=== PATIENT | male | born 1980 | race Caucasian/White ===

== ENCOUNTER 2023-01-19 13:27 | Outpatient (CLI) | payer SELFPAY | END 2023-01-19 13:28 | disposition home or self-care (01) | LOC: NFLDREF 13:29 | PROVIDERS: PCP Internal Medicine; Visit Provider Internal Medicine | DX: R39.9 Unspecified symptoms and signs involving the genitourinary system (principal) | CPT/HCPCS: 87086 ==

== ENCOUNTER 2023-01-26 16:09 | Outpatient (CLI) | payer SELFPAY | END 2023-01-26 16:10 | disposition home or self-care (01) | LOC: NFLDREF 01-29 13:39 | PROVIDERS: PCP Internal Medicine; Referring Provider Internal Medicine; Visit Provider Internal Medicine | DX: R30.9 Painful micturition, unspecified (principal) | CPT/HCPCS: 87086 ==

== ENCOUNTER 2023-01-28 15:36 | Outpatient (CLI) | payer SELFPAY ==
--- NOTE | 2023-01-28 16:00 | CRLHL7_ITS ---
For Patients: As a result of the Century Cures Act, medical imaging exams and procedure reports are released immediately into your electronic medical record. You may view this report before your referring provider. If you have questions, please contact your health care provider. INDICATION: Bilateral testicular pain TECHNIQUE: Ultrasound of the scrotum and contents. Sonographic centeno scale images were obtained with spectral and color Doppler waveform and spectral waveform analysis of the testicles. COMPARISON: None FINDINGS: Right testicle: 5.0 centimeter x 2.6 centimeter x 3.0 centimeter. Normal echotexture. No masses. No suspicious calcifications. Normal arterial and venous and blood flow using Doppler and spectral waveform analysis. Left testicle: 4.8 centimeter x 2.6 centimeter x 3.2 centimeter. Normal echotexture. No masses. No suspicious calcifications. Normal arterial and venous and blood flow using Doppler and spectral waveform analysis. Epididymis: Unremarkable bilaterally. Normal blood flow. Other: No sign of hydrocele. No sign of varicocele. Scrotal wall is normal. IMPRESSION: Unremarkable ultrasound of the scrotum and contents. Dictated by Teo Jaimes MD @ 01/28/2023 6:25:06 PM (Electronically Signed)
== END 2023-01-28 15:37 | disposition home or self-care (01) ==
LOC: US 15:40
PROVIDERS: PCP Internal Medicine; Visit Provider Internal Medicine
DX: N50.819 Testicular pain, unspecified (principal)
CPT/HCPCS: 76870; 93976

== ENCOUNTER 2023-06-07 10:55 | Outpatient (CLI) | payer SELFPAY | END 2023-06-07 10:56 | disposition home or self-care (01) | PROVIDERS: PCP Internal Medicine; Visit Provider Internal Medicine | DX: I10 Essential (primary) hypertension (principal); E11.9 Type 2 diabetes mellitus without complications; N52.9 Male erectile dysfunction, unspecified; Z12.5 Encounter for screening for malignant neoplasm of prostate | CPT/HCPCS: 80053; 80061; 82043; 82570; 84153 ==

== ENCOUNTER 2023-11-29 08:00 | Outpatient (CLI) | payer OTHER, SELFPAY ==
--- OUTSIDE RECORDS SUMMARY | 2023-12-02 10:05 | XMS_ITS | Encounter Summary ---
Author Name Unknown Organization [facility] Address [address] [place] [address] Care Team Providers Care Radiological Defense Officer Name Role Phone Unavailable Primary Care Provider Unavailabl e Encounter Details Date Type Department Care Team (Late st Contact Info) Description 09/13/2023 Orders Only Department of Urology in [place], [place] [address] [place] [address] Francoise Gloria APRN, C.N.P. [address] [place] [address] Social History Tobacco Use Types Packs/Day Years Used Date Smoking Tobacco: Never Assessed Humiliation, Afraid, Rape, and Kick questionnair e Answer Date Recorded Within the last year, have y ou been afraid of your partner or ex-partner? No 07/08/2023 Within the last year, have y ou been humiliated or emotionally abused in other ways by your partner or ex-partner? No Within the last year, have y ou been kicked, hit, slapped, or otherwise physically hurt by your partner or ex-partner? No 07/08/2023 Within the last year, have y ou been raped or forced to have any kind of sexual activity by your partner or ex-partner? No 07/08/2023 Overall Financial Resource Strain (CARDIA) Answe r Date Recorded How hard is it for you to pa y for the very basics like food, housing, medical care, and heating? Not hard at all 07/08/2023 Exercise Vital Sign Answer Date Recorde d On average, how many days pe r week do you engage in moderate to strenuous exercise (like a brisk walk)? 0 days Minutes of Exercise per Session Not on file 07/08/2023 Hunger Vital Sign Answer Date Recorded Within the past 12 months, y ou worried that your food would run out before you got the money to buy more. Never true 07/08/20 Within the past 12 months, t he food you bought just didn't last and you didn't have money to get more. Never true 07/08/2023 PRAPARE - Transportation Answer Date Re corded In the past 12 months, has l ack of transportation kept you from medical appointments or from getting medications? No 06/22 In the past 12 months, has l ack of transportation kept you from meetings, work, or from getting things needed for daily living? No 07/08/2023 Nutrition Answer Date Recorded Nutrition: EVOO Fat Source Unknown 07/08 On average, how many serving s of fruits and vegetables do you eat per day (serving size is equal to 1 cup or approximately the size of a tennis ball)? 5 or more 07/08/2023 Dental Answer Date Recorded Dental: Regular Dentist Yes 07/08/20 Employment Answer Date Recorded Employment status Employed and actively working without restrictions 07/08/2023 Housing Stability Answer Date Recorded What is your living situation today? I have a [facility] place to live 07/08/2023 Sex and Gender Information Value Date Recorded Sex Assigned at Male 07/08/2023 1:48 PM CDT Gender Identity Male 07/08/2023 1:48 PM CDT Sexual Orientation Straight 07/08/2023 1: 48 PM CDT documented as of this encounter Plan of Treatment Not on file documented as of this encounter Visit Diagnoses Not on filedocumented in this encounter
--- OUTSIDE RECORDS SUMMARY | 2023-12-02 10:05 | XMS_ITS | Referral Summary ---
Author Name Unknown Organization [facility] Address [address] [place] [address] Care Team Providers Care Boilermaker Mechanic Name Role Phone Unavailable Primary Care Provider Unavailabl e Source Comments Patient records contain information from all sites at [facility]. For routine questions regarding patient records, call [phone] during business hours, M-F 8:00 AM - 5:00 PM Central Time. Record requests for emergency care only can be directed to [phone] at any time.[facility] Encounters Date Type Department Care Team Description 11/23/2023 11:00 AM YIELD ANALYST Office Visit Department of Urology in [address] [address] Francoise Gloria APRN, C.N.P. Prostatitis (Primary Dx); Dysfunction Erectile; Cancer Prostate Family History 11/10/2023 Clinical Communication Department of Urology in [address] [address] Mary Velasquez, R.N. 09/13/2023 Orders Only Department of Urology in [address] [address] Francoise Gloria APRN, C.N.P. 09/09/2023 Clinical Communication Department of Urology in [address] [address] Francoise Gloria APRN, C.N.P. from Last 3 Months Allergies No known active allergies Medications Medication Sig Dispensed Refills Start Date End Date Status aspirin 81 mg chewable tablet Chew 81 mg daily. 0 9 Active atorvastatin (LIPITOR) 40 mg tablet Take 40 mg by mouth every evening. 0 Active clobetasoL (CLOBEX) 0.05 % lotion Apply 1 Application topically at bedtime as needed. 0 Active amphetamine-dex troamphetamine (ADDERALL XR) 30 mg 24 hr capsule Take 30 mg by mouth daily. 0 Active amphetamine-dex troamphetamine (ADDERALL XR) 10 mg 24 hr capsule Take 10 mg by mouth daily. 0 Active albuterol 90 mcg/actuation inhaler Inhale 2 puffs every 6 (six) hours as needed for wheezing or shortness of breath. 0 7 Active EPINEPHrine 0.3 mg/0.3 mL injection syringe Inject 0.3 mg intramuscularly as needed for anaphylaxis. 0 7 Active glyBURIDE (DIABETA) 5 mg tablet Take 5 mg by mouth 2 (two) times a day with meals. 0 Active losartan (COZAAR) 100 mg tablet Take 100 mg by mouth daily. 0 Active metFORMIN (GLUCOPHAGE) 1,000 mg tablet Take 1,000 mg by mouth 2 (two) times a day with meals. 0 Active nitroglycerin (NITROSTAT) 0.[address] 0.4 mg under the tongue every 2 (two) hours as needed for chest pain. 0 9 Active sodium bicarb-sodium chloride 2.7 % aerosol,spray Administer 1 spray into nostril(s) 5 (five) times a day. 0 Active triamcinolone (NASACORT) 55 mcg/actuation nasal spray Administer 1 spray into each nostril daily. 0 Active sotaloL (BETAPACE) 120 mg tablet Take 120 mg by mouth every 12 (twelve) hours. 0 3 Active zolpidem (AMBIEN) 10 mg tablet Take 10 mg by mouth at bedtime. 0 Active ticagrelor (BRILINTA) 90 mg tablet Take 90 mg by mouth 2 (two) times a day. 0 3 Active insulin glargine (Lantus Solostar U-100 Insulin) 100 unit/mL (3 mL) injection Inject 15 Units under the skin at bedtime. 0 3 Active metoprolol tartrate (LOPRESSOR) 25 mg tablet Take 25 mg by mouth 2 (two) times a day. 0 3 Active isosorbide mononitrate (IMDUR) 60 mg 24 hr tablet Take 60 mg by mouth daily. 0 3 Active amlodipine besylate (AMLODIPINE ORAL) Take by mouth. 0 Active tamsulosin (FLOMAX) 0.4 mg 24 hr capsule Take 1 capsule (0.4 mg total) by mouth daily. 30 capsule 1 3 11/23/19 24 Discontinued doxycycline hyclate (VIBRAMYCIN) 100 mg capsule Take 1 capsule (100 mg total) by mouth 2 (two) times a day before breakfast and dinner. 60 capsule 1 3 11/23/19 24 Discontinued Active Problems Problem Noted Date Diagnosed Date Sleep Apnea 07/08/2023 Obesity Unspecified 07/08/2023 Myocarditis 07/08/2023 Dyslipidemia 07/08/2023 Overview: -Low HDL, high TG Atherosclerotic Heart Diseas e Of [place] Coronary Artery Without Angina Pectoris 07/08/2023 Overview: -Mild per angiogram 05/13/10. EF 65%. 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 I have a [facility] place to live 07/08/2023 Sex and Gender Information Value Date Recorded Sex Assigned at Male 07/08/2023 1:48 PM CDT Gender Identity Male 07/08/2023 1:48 PM CDT Sexual Orientation Straight 07/08/2023 1: 48 PM CDT Plan of Treatment Not on file [address] [facility] [place] [id number]
--- OUTSIDE RECORDS SUMMARY | 2023-12-02 10:05 | XMS_ITS ---
Author Name Unknown Organization [facility] Address [address] [place] [address] Care Team Providers Care Hadoop Analyst Name Role Phone Unavailable Unavailable Unavailable Surgery Details Not on file Complications Check Surgery Details section. Procedure Estimated Blood Loss Check Surgery Details section. Procedure Findings Check Surgery Details section. Procedure Specimens Taken Check Surgery Details section.
--- OUTSIDE RECORDS SUMMARY | 2023-12-02 10:05 | XMS_ITS | Encounter Summary ---
Author Name Unknown Organization [facility] Address [address] [place] [address] Care Team Providers Care Producer Arborist Manager Name Role Phone Unavailable Primary Care Provider Unavailabl e Encounter Details Date Type Department Care Team (Late st Contact Info) Description 11/10/2023 Clinical Communication Department of Urology in [place], [place] [address] [address] Mary Velasquez R.N. [address], [place] [address] Social History Tobacco Use Types [...] your living situation today? I have a [facility] place to live 07/08/2023 Sex and Gender Information Value Date Recorded Sex Assigned at Male 07/08/2023 1:48 PM CDT Gender Identity Male 07/08/2023 1:48 PM CDT Sexual Orientation Straight 07/08/2023 1: 48 PM CDT documented as of this encounter Miscellaneous Notes * Telephone Encounter - Mary Velasquez, R.N. - 11/10/2023 2:05 PM CST OW Uro contacted patient to inquire further information for uro visit 11/23/23. Patient states same exact thing as when he was seen in June. Denies any change of symptoms or new symptoms, I do think the medication she put me on may have made it worse, pt did complete as instructed. Patient doesmention swelling suzy testicles, but states no change since last uro appointment as well. TH AND WELLNESS ADVISOR documented in this encounter Plan of Treatment Not on file documented as of this encounter Visit Diagnoses Not on filedocumented in this encounter
--- OUTSIDE RECORDS SUMMARY | 2023-12-02 10:05 | XMS_ITS | Encounter Summary ---
Author Name Unknown Organization [facility] Address [address] [place] [address] Care Team Providers Care Bean Sprout Grower Name Role Phone Unavailable Primary Care Provider Unavailabl e Encounter Details Date Type Department Care Team (Late st Contact Info) Description 09/09/2023 Clinical Communication Department of Urology in [place], [place] [address], [place] [address] Francoise Gloria APRN, C.N.P. [address] [place] [address] Social History Tobacco Use Types [...] your living situation today? I have a [facility] place to live 07/08/2023 Sex and Gender Information Value Date Recorded Sex Assigned at Male 07/08/2023 1:48 PM CDT Gender Identity Male 07/08/2023 1:48 PM CDT Sexual Orientation Straight 07/08/2023 1: 48 PM CDT documented as of this encounter Miscellaneous Notes * Telephone Encounter - Mary Gael, RMonalisaN. - 09/13/2023 2:51 PM CDT OW Uro Rn called patient. Patient is vague, dull pain hard to describe; it got better with antibiotics and now working it's way back does have occasional pain with urination but more so like prostatitis. Symptoms are daily. * Telephone Encounter - Mary Gale RBinta. - 09/09/2023 4:07 PM CDT OW Uro RN called patient. Patient states, almost as bad as before antibiotics for prostatitis. Slow stream, pain in groin, pain during urination. ED, has not yet discussed with cardiology, I should mention I ended up at [facility] for two stents and an ablation. But thinks his concerns are linked together and wondering what he can do. documented in this encounter Plan of Treatment Not on file documented as of this encounter Visit Diagnoses Not on filedocumented in this encounter
--- OUTSIDE RECORDS SUMMARY | 2023-12-02 10:05 | XMS_ITS | Clinical Summary ---
Author Name Unknown Organization [facility] Address [address] [place] [address] Care Team Providers Care Nut Grinder Name Role Phone Unavailable Primary Care Provider Unavailabl e Source Comments Patient records contain information from all sites at [facility]. For routine questions regarding patient records, call [phone] during business hours, M-F 8:00 AM - 5:00 PM Central Time. Record requests for emergency care only can be directed to [phone] at any time.[facility] Allergies No known active allergies Medications Medication [...] high TG Atherosclerotic Heart Diseas e Of [place] Coronary Artery Without Angina Pectoris 07/08/2023 Overview: -Mild per angiogram 05/13/10. EF 65%. 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 Prostatitis (Primary Dx); Dysfunction Erectile; Cancer Prostate Family History 11/10/2023 Clinical Communication Department of Urology in [place], [place] [address] [address] Mary Velasquez, R.N. 09/13/2023 Orders Only Department of Urology in [place], [place] [address] [address] Francoise Gloria APRN, C.N.P. 09/09/2023 Clinical Communication Department of Urology in [place], [place] [address] [place] [phone] Francoise Gloria APRN, C.N.P. from Last 3 Months Immunizations Name Administration Dates Next Due DTP 03/23/1985, 1,1980,1980,04/11/19 80 MMR 04/04/1992,07/15/1981 OPV 03/23/1982, 1,1980,1980,04/11/19 80 Td (Adult), adsorbed 07/18/1997 Td, (Adult) Unspecified 11/22/1992 Tdap 04/10/2020 Family History Medical History Relation Name Comments Heart attack Father EF 20% Prostate cancer Father Heart attack Paternal Grandmother Relation Name Status Comments Father Paternal Grandmother Social History Tobacco Use Types Packs/Day Years [...] money to buy more. Never true 07/08/20 23 Within the past 12 months, t he [...] your living situation today? I have a [facility] place to live 07/08/2023 Sex and Gender Information Value Date Recorded Sex Assigned at Male 07/08/2023 1:48 PM CDT Gender Identity Male 07/08/2023 1:48 PM CDT Sexual Orientation Straight 07/08/2023 1: 48 PM CDT Plan of Treatment Health Maintenance Due Date Last Done Comments Diabetic Office Visit with Foot Exam 1980 Dilated Eye Exam 1980 HIV Screening 1980 Hemoglobin A1C 1980 Hepatitis B Vaccines (1 of 3 - 3-dose series) 1980 Hepatitis C Screening 1980 Office Visit for Blood Pressure Check / Re-check 1980 Urine Albumin 1980 Pneumococcal vaccine (0-64 years) (1 of 2 - PCV) 01/25/1986 COVID-19 Vaccine (3 - season) 2023 03/12/2021, 02/12/2021 Influenza Vaccine (#1) 2023 Depression Screening (Annual PHQ-2) 11/22/2023 Creatinine Level (Kidney Function Test) 07/27/2024 07/27/2023, 07/25/2023, 07/24/2023, Additional history exists Sodium Level 07/27/2024 07/27/2023, 09/0 01/2023, 07/24/2023, Additional history exists Potassium Level 07/28/2024 07/28/2023, 09/0 03/2023, 07/26/2023, Additional history exists Lipid (Cholesterol) Screening 07/26/2028 07/26/2023, 08/08/2021, 10/25/2019 DTaP,Tdap,and Td Vaccines (7 - Td or Tdap) 04/10/2030 04/10/2020, 07/18/1997, 11/22/1992, Additional history exists HPV Vaccines Aged Out No longer eligi ble based on patient's age to complete this topic [address] [facility] [place] [phone]
--- OUTSIDE RECORDS SUMMARY | 2023-12-02 10:05 | XMS_ITS | Encounter Summary ---
Author Name Unknown Organization [facility] Address [address] [place] [address] Care Team Providers Care Homeowner Association Manager Name Role Phone Unavailable Primary Care Provider Unavailabl e Reason for Visit * Appointment Request (Routine) - Closed Specialty Diagnoses / Procedures Referred By Contac t Referred To Contact Urology Referral ID Status Reason Start Date Expiration Date Visits Re quested Visits Authorized [id number] Closed 11/01/2023 10/31/2024 1 1 Encounter Details Date Type Department Care Team (Late st Contact Info) Description 11/23/2023 11:00 AM MILITARY ADMINISTRATIVE TECHNICIAN Office Visit Department of Urology in [place], [place] [address] [address] Francoise Gloria, SUSI, C.N.P. [address] [address] Prostatitis (Primary Dx); Dysfunction Erectile; Cancer Prostate Family History Social History Tobacco Use Types Packs/Day Years [...] your living situation today? I have a [facility] place to live 07/08/2023 Sex and Gender Information Value Date Recorded Sex Assigned at Male 07/08/2023 1:48 PM CDT Gender Identity Male 07/08/2023 1:48 PM CDT Sexual Orientation Straight 07/08/2023 1: 48 PM CDT documented as of this encounter Progress Notes * Francoise Gloria, SUSI, C.N.P. - 11/23/2023 11:00 AM CST SUBJECTIVE CHIEF COMPLAINT/REASON FOR VISIT Prostatitis HISTORY OF PRESENT ILLNESS Francisco is a pleasant 43 year old male here today for follow-up for prostatitis. He completed 2 courses of antibiotics. He states on the last week or 2 of antibiotics he had worsening testicular pain and swelling. His symptoms are now completely resolved, he denies any testicular pain, scrotal pain, symptoms of prostatitis. He was hospitalized from July 22 through July 28 for cardiac issues. He underwent angiogramand had stents placed to the LAD and PTCA, lithotripsy and overlapping KYRA to distal to proximal RCA. He continues to have frequent PVCs and will have an ablation on December 03. He sees his primaryprovider, Dr. Salvador Gamino at [facility] for his diabetes management and primary care. The following portions of the patient's history were reviewed and updated as appropriate: allergies, current medications, family history, medical history, social history, surgical history, and problem list. REVIEW OF SYSTEMS Gastrointestinal: - Negative for constipation and diarrhea. Genitourinary: - Negative for incontinence, difficulty urinating, pain with urination, blood in urine, urgency andfrequent urination. Psychiatric/Behavioral: Positive for erectile dysfunction. OBJECTIVE There were no vitals filed for this visit. PHYSICAL EXAM Vitals and nursing note reviewed. General: Well developed, well nourished, well groomed 0 in no acute distress. Neurological: Alert, cooperative, oriented x3. Appropriate mood and affect. Abdomen: Soft, non-tender, non-distended Extremities: Warm, without edema or ulcerations. ASSESSMENT / PLAN 1. Prostatitis He has not had any symptoms of prostatitis for almost 3 weeks, this is excellent news. At this time, we will continue to monitor. If he has change in urinary symptoms or pain with urination or ejaculation he will contact us. 2. Dysfunction Erectile He is taking Imdur which makes him a poor candidate for oral PDE5. We discussed possibility of vacuum erection device with penile ring as well as implantable device in the future. He will consider this and let us know if he would like to discuss implantable device in the future. 3. Cancer Prostate Family History We discussed that with family history of prostate cancer, we will start checking PSA levels at age 45, we will be careful to check only if he is not having any symptoms of infection. He is given literature about prostate health. Signed by: Francoise Gloria APRN, C.N.P. 11/23/2023 12:04 PM MILITARY ADMINISTRATIVE TECHNICIAN TARY ADMINISTRATIVE TECHNICIAN documented in this encounter Plan of Treatment Not on file documented as of this encounter Visit Diagnoses Diagnosis Prostatitis- Primary Dysfunction Erectile Cancer Prostate Family History documented in this encounter
--- OUTSIDE RECORDS SUMMARY | 2023-12-02 10:06 | XMS_ITS | Encounter Summary ---
Author Name Unknown Organization [facility] Address [address] [place] [address] Care Team Providers Care Career Representative Name Role Phone Unavailable Primary Care Provider Unavailabl e Reason for Visit * Reason Comments Consult Erectile Dysfunction * Outpatient (Routine) - Closed Specialty Diagnoses / Procedures Referred By Tor t Referred To Contact Urology Diagnoses Dysfunction Erectile Nathaniel Gamino M.D. [address] [place] [address] [facility] Region Referral ID Status Reason Start Date Expiration Date Visits Re quested Visits Authorized [id number] Closed 06/07/2023 06/06/2024 1 1 Encounter Details Date Type Department Care Team (Latest Contact Info) Description 07/08/2023 1:30 PM CDT Comprehensive Visit Department of Urology in [place], [place] [address] [address] Francoise Gloria, SUIS, C.N.P. [address] [address] Dysfunction Erectile (Primary Dx); Prostatitis Social History Tobacco Use Types Packs/Day Years [...] living situation today? I have a [facility] place to live 07/08/2023 Sex and Gender Information Value Date Recorded Sex Assigned at Male 07/08/2023 1:48 PM CDT Gender Identity Male 07/08/2023 1:48 PM CDT Sexual Orientation Straight 07/08/2023 1: 48 PM CDT documented as of this encounter Consult Notes * Francoise Gloria, SUSI, C.N.P. - 07/08/2023 1:30 PM CDT SUBJECTIVE REQUESTING PROVIDER Nathaniel Gamino M.D. REASON FOR CONSULT Erectile Dysfunction HISTORY OF PRESENT ILLNESS Francisco is a pleasant 43 year old male here today for consultation for erectile dysfunction. He has history of SVT, type 2 diabetes that is not well controlled, and hypertension. He reports that he has been having slowing urinary stream. His scrotum swells by nighttime. He drinks 1-2 gal of water during the day. His pain at the end of the penis and york to urinate. Blood glucose is have been up to 300, he is taking 15 units of Lantus. His blood pressure has been elevated, 140 over 70s to 80s. He reports that occasionally his diastolic gets up 2 100. He has not needed any nitroglycerin lately but reports he still is having episodesof SVT, last episode was last month. The following portions of the patient's history were reviewed and updated as appropriate: allergies, current medications, family history, medical history, social history, surgical history, and problem list. REVIEW OF SYSTEMS Gastrointestinal: - Negative for constipation and diarrhea. Genitourinary: Positive for difficulty urinating. - Negative for incontinence, pain with urination, blood in urine, urgency and frequent urination. Psychiatric/Behavioral: Positive for erectile dysfunction. Patient Active Problem List Diagnosis Tachycardia Supraventricular (HCC) Sleep Apnea Obesity Unspecified Myocarditis (HCC) Dyslipidemia Diabetes Mellitus Type 2 (HCC) Attention Deficit Hyperactive Disorder Atherosclerotic Heart Disease Of [place] Coronary Artery Without Angina Pectoris Angina Unstable (HCC) Myocardial Infarction Acute (HCC) Hypertension Essential Primary No past medical history on file. No past surgical history on file. No family history on file. No Known Allergies Current Outpatient Medications on File Prior to Visit Medication Sig Dispense Refill albuterol 90 mcg/actuation inhaler Inhale 2 puffs every 6 (six) hours as needed for wheezing or shortness of breath. amphetamine-dextroamphetamine (ADDERALL XR) 10 mg 24 hr capsule Take 10 mg by mouth daily. amphetamine-dextroamphetamine (ADDERALL XR) 30 mg 24 hr capsule Take 30 mg by mouth daily. aspirin 81 mg chewable tablet Chew 81 mg daily. atorvastatin (LIPITOR) 40 mg tablet Take 40 mg by mouth every evening. clobetasoL (CLOBEX) 0.05 % lotion Apply 1 Application topically at bedtime as needed. EPINEPHrine 0.3 mg/0.3 mL injection syringe Inject 0.3 mg intramuscularly as needed for anaphylaxis. glyBURIDE (DIABETA) 5 mg tablet Take 5 mg by mouth 2 (two) times a day with meals. losartan (COZAAR) 100 mg tablet Take 100 mg by mouth daily. metFORMIN (GLUCOPHAGE) 1,000 mg tablet Take 1,000 mg by mouth 2 (two) times a day with meals. nitroglycerin (NITROSTAT) 0.[address] 0.4 mg under the tongue every 2 (two) hours as needed for chest pain. sodium bicarb-sodium chloride 2.7 % aerosol,spray Administer 1 spray into nostril(s) 5 (five) timesa day. sotaloL (BETAPACE) 120 mg tablet Take 120 mg by mouth every 12 (twelve) hours. triamcinolone (NASACORT) 55 mcg/actuation nasal spray Administer 1 spray into each nostril daily. zolpidem (AMBIEN) 10 mg tablet Take 10 mg by mouth at bedtime. No current facility-administered medications on file prior to visit. Social History Socioeconomic History Marital status: Single Social Determinants of Health Financial Resource Strain: Low Risk (07/08/2023) Overall Financial Resource Strain (CARDIA) Difficulty of Paying Living Expenses: Not hard at all Food Insecurity: No Food Insecurity (07/08/2023) Hunger Vital Sign Worried About Running Out of Food in the Last Year: Never true Ran Out of Food in the Last Year: Never true Transportation Needs: No Transportation Needs (07/08/2023) PRAPARE - Transportation Lack of Transportation (Medical): No Lack of Transportation (Non-Medical): No Physical Activity: Unknown (07/08/2023) Exercise Vital Sign Days of Exercise per Week: 0 days Intimate Partner Violence: Not At Risk (07/08/2023) Humiliation, Afraid, Rape, and Kick questionnaire Fear of Current or Ex-Partner: No Emotionally Abused: No Physically Abused: No Sexually Abused: No Housing Stability: Low Risk (07/08/2023) Housing Stability Housing: Living Situation: I have a steady place to live OBJECTIVE There were no vitals filed for this visit. PHYSICAL EXAM Vitals and nursing note reviewed. General: Well developed, well nourished, well groomed male in no acute distress. Neurological: Alert, cooperative, oriented x3. Appropriate mood and affect. Abdomen: Soft, non-tender, non-distended : Skin color and turgor appropriate for region. No ulcers, erythema, rashes, or pigmented lesionsnoted. MALE: Penis is without abnormal skin, contour changes or plaques. Testicles of normal size, descended bilaterally with no masses or tenderness. PROSTATE: Perianal area intact without lesions or visible hemorrhoids. No fissures or fistulas. Good sphincter tone, no masses. Prostate is symmetrical, smooth, boggy, slightly enlarged, non-tender and without nodules. Seminal vesicles are non-palpable. Approximate size is 30 grams. ASSESSMENT / PLAN 1. Dysfunction Erectile We discussed causes of erectile dysfunction including his cardiac history and uncontrolled diabetes. We discussed that with his continued bouts of SVT, it can be dangerous to use sildenafil. He has an upcoming appointment with his cardiology team. He would like a prescription for sildenafil, he states that he will not use this until he has clearance from cardiology team. We discussed side effectsof sildenafil including chest pain, shortness of breath, extremely low blood pressure, vision changes, headache. We also briefly discussed options including surgical options, vacuum erection device, and injectable options. - Urology Referral 2. Prostatitis We discussed that his slowing stream and pain with urination are likely from prostatitis. Prescription for doxycycline is provided, he is also given prescription for Flomax. He should take this for 1-2 weeks until he has improvement of urinary stream. Follow-up in the Urology Department as needed. A ll questions answered today. Signed by: Francoise Gloria APRN, C.N.P. 07/26/2023 5:34 PM CDT Answers submitted by the patient for this visit: Men's Health - Erectile Function (Submitted on 07/08/2023) Do you have any difficulty obtaining or maintaining an erection satisfactory for sexual intercourse?: Yes Men's Health- Peyronie's Disease (Submitted on 07/08/2023) Do you have any penile curvature?: No Men's Health - Other Sexual Function (Submitted on 07/08/2023) Do you have any complaints about orgasm or ejaculation?: Yes Are you able to achieve an orgasm (reach climax)?: Yes Do you have fluid which leaves the penis with orgasm / climax?: Yes Do you ever accidentally urinate when aroused or during orgasm / climax?: Yes Do you feel that you ejaculate (reach climax) too slowly or too quickly?: yes Men's Health - Testosterone Intake (Submitted on 07/08/2023) On a scale of 1-10, how strong is your sexual desire (libido)?: 8 Difficulty Concentrating: Yes Decreased Energy: Yes Decreased erectile function: Yes Decreased Motivation: Yes Do you have diabetes?: yes Have you ever had your testosterone checked?: No Have you previously used any of the following testosterone therapies?: none Are you currently receiving testosterone therapy?: No How long have you taken the testosterone medicine (if taking intermittently, for how many years have you been taking intermittently)?: 0 Months Which symptoms are improved with the testosterone medication?: other Do you wish to maintain your fertility?: Yes Men's Health - Erectile Function (Submitted on 07/08/2023) How many months or years have you noticed difficulties with erections?: 10 Months How many times per month do you engage in sexual intercourse with a partner?: 0 How would you rate the hardness of your erection without any medications or supplements?: 0 = Penisdoes not enlarge How many minutes can you maintain an erection that is strong enough to penetrate?: 0 Can maintain erection long enough for successful intercourse?: No How strong are your night-time or travel clerk erections?: 0 = Penis does not enlarge Have you ever tried medications like Viagra, Levitra, Cialis, or Stendra?: No Have you ever, or do you currently use penile injection therapies?: No Have you ever or do you currently use a vacuum device or erection constriction ring to help with erections?: No None: Yes Have you had your prostate removed (prostatectomy)?: No Have you ever received any form of hormone therapy (shots or pills to reduce your testosterone)?: No (Submitted on 07/08/2023) From the time that you penetrate, how long does it take until you ejaculate?: 0 Minutes Have you tried any therapies for rapid ejaculation?: No How long have you experienced problems with rapid ejaculation?: varies documented in this encounter Plan of Treatment Not on file documented as of this encounter Visit Diagnoses Diagnosis Dysfunction Erectile- Primary Prostatitis documented in this encounter
--- OUTSIDE RECORDS SUMMARY | 2023-12-02 10:06 | XMS_ITS | Encounter Summary ---
Author Name Unknown Organization [facility] Address [address] [place] [address] Care Team Providers Care Hat Model Name Role Phone Unavailable Primary Care Provider Unavailabl e Reason for Referral * Outpatient (Routine) - Closed Specialty Diagnoses / Procedures Referred By Contac t Referred To Contact Urology Diagnoses Dysfunction Erectile Nathaniel Gamino M.D. [address] [place] [address] [facility] Referral ID Status Reason Start Date Expiration Date Visits Re quested Visits Authorized [id number] Closed 06/07/2023 06/06/2024 1 1 Encounter Details Date Type Department Care Team (Late st Contact Info) Description 06/07/2023 [place] [address] [address] Nathaniel Gamino M.D. [address] [place] [address] Dysfunction Erectile (Primary Dx) Social History Tobacco Use Types Packs/Day Years Used Date Smoking Tobacco: Never Assessed Nutrition Answer Date Recorded Nutrition: EVOO Fat Source Unknown 06/07 Nutrition: Servings of Fruits/Vegetables per Day Not on file 06/07/2023 Dental Answer Date Recorded Dental: Regular Dentist Unknown 06/07/20 Sex and Gender Information Value Date Recorded Sex Assigned at Male 07/08/2023 1:48 PM CDT Gender Identity Male 07/08/2023 1:48 PM CDT Sexual Orientation Straight 07/08/2023 1: 48 PM CDT documented as of this encounter Plan of Treatment Scheduled Referrals Name Type Priority Associated Diagnoses Orde r Schedule Urology Referral Outpatient Referral Routine Dysfunction Erectile Expected: 06/07/2023 (Approximate), Expires: 09/07/2024 documented as of this encounter Visit Diagnoses Diagnosis Dysfunction Erectile- Primary documented in this encounter
--- OUTSIDE RECORDS SUMMARY | 2023-12-02 10:06 | XMS_ITS | Clinical Summary ---
Author Name Unknown Organization [facility] Address [place], [place] [address] Care Team Providers Care Internal Medicine Specialist Name Role Phone Nathaniel Gamino MD Primary Care Provider [phone] Allergies No known active allergies Medications Medication Sig Dispensed Refills Start Date End Date Status ALBUTEROL 90 MCG/ACTUATION AEROSOL INHALER TAKE 2 PUFFS FOUR TIMES DAILY AND NEEDED 17 3 03/15/2007 Active EPINEPHrine (EPIPEN) 0.3 mg/0.3 mL injectionIndicatio ns:Anaphylactic reaction, initial encounter Inject 0.3 mg intramuscular one time if needed for Allergic Reaction for up to 1 dose. 2 Each 0 12/10/2016 Active aspirin chewable 81 mg chewable tabletIndications: Chest pain, unspecified type,NSTEMI (non-ST elevated myocardial infarction) (HC) Take 1 tablet by mouth once daily with a meal. 0 10/25/2019 Active dextroamphetamine- amphetamine (ADDERALL XR) 30 mg Extended-Release capsule Take 30 mg by mouth every morning 0 Active dextroamphetamine- amphetamine (ADDERALL XR) 10 mg Extended-Release capsule Take 10 mg by mouth once daily in the afternoon Take at 1 pm 0 Active sodium bicarb-sodium chloride 2.7 % nasal spray Inhale 1 [place] to both nostrils 5 times daily. as needed for outdoor allergy exposure. 0 Active triamcinolone, 55 mcg each actuation, nasal (NASACORT) 55 mcg nasal spray Inhale 1 [place] into both nostrils at bedtime. 0 Active Clobetasol Propionate 0.05 % lotion Apply topically to affected area(s) once daily if needed for Other (Specify) (eczema). 0 Active metFORMIN (GLUCOPHAGE) 1,000 mg tablet Take 1,000 mg by mouth two times daily. 0 Active Lantus Solostar U-100 Insulin 100 unit/mL (3 mL) pen Inject 15 units subcutaneous before bedtime. 0 12/16/2022 Active tamsulosin (FLOMAX) 0.4 mg capsule Take 0.4 mg by mouth once daily. 0 Active amLODIPine (NORVASC) 5 mg tabletIndications: Essential hypertension Take 2 Tablets (10 mg) by mouth once daily. 90 Tablet 3 07/28/2023 Active ticagrelor (BRILINTA) 90 mg tabletIndications: Unstable angina (HC) Take 1 Tablet (90 mg) by mouth two times daily. 60 Tablet 12 07/28/2023 Active zolpidem (AMBIEN) 10 mg tabletIndications: Essential hypertension Take 1 Tablet (10 mg) by mouth at bedtime. 0 07/28/2023 Active atorvastatin (LIPITOR) 40 mg tabletIndications: NSTEMI (non-ST elevated myocardial infarction) (HC) Take 1 Tablet (40 mg) by mouth at bedtime. 90 Tablet 3 08/06/2023 Active isosorbide mononitrate (IMDUR) 60 mg extended release tablet 24 hourIndications:Un stable angina (HC) Take 1 Tablet (60 mg) by mouth once daily. 90 Tablet 3 08/06/2023 Active nitroglycerin (NITROSTAT) 0.4 mg sublingual tabletIndications: NSTEMI (non-ST elevated myocardial infarction) (HC) Place 1 Tablet (0.4 mg) under the tongue every 5 minutes if needed for Chest Pain. 25 Tablet 3 08/06/2023 Active glyBURIDE (MICRONASE; DIABETA) 5 mg tabletIndications: Diabetes 1.5, managed as type 1 (HC) Take 1 Tablet (5 mg) by mouth once daily. 0 08/06/2023 Active losartan (COZAAR) 100 mg tabletIndications: Hypertension Take 1 Tablet (100 mg) by mouth once daily. 90 Tablet 3 08/06/2023 Active metoprolol tartrate (LOPRESSOR) 25 mg tabletIndications: PVC's (premature ventricular contractions) Take 1 Tablet (25 mg) by mouth two times daily. 180 Tablet 3 08/23/2023 Active sotaloL (BETAPACE) 120 mg tabletIndications: PVC's (premature ventricular contractions) Take 1 Tablet (120 mg) by mouth every 12 hours. 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 Residual 50% ostial diagonal stenosis - NSTEMI s/p KYRA to distal RCA (10/2019) Dyslipidemia Overview: -Low HDL, high TG NSTEMI (non-ST elevated myocardial infarction) Myocarditis Resolved Problems Problem Noted Date Diagnosed Date Resolved Date Insulin dependent type 2 diabetes mellitus 11/12/2019 11/12/2019 Uncontrolled type 2 diabetes mellitus without complication, without long-term current use of insulin 10/24/2019 11/12/2019 Elevated troponin 11/12/2019 Family history of premature CAD 11/12/2019 Encounters Date Type Department Care Team Description 11/30/2023 Telephone [facility] [address] [place] [address] Elias Arita MD Procedure 10/28/2023 Telephone [facility] [address] [facility] [address] [place] [address] Elias Arita MD Procedure 10/27/2023 Telephone [facility] [address] [place] [address] Elias Arita MD Medication Management from Last 3 Months Immunizations Name Administration Dates Next Due DTP 03/23/1985,09/06/1981,1980 ,1980,1980 MMR 04/04/1992,07/15/1981 Oral Polio Vaccine 03/23/1982,09/06/1981, 980,1980,1980 Td (Age >=7 Years) 11/22/1992 Family History Medical History Relation Name Comments Diabetes type II Father Heart attack Father Hypertension Father Asthma Mother Cancer-breast Mother Relation Name Status Comments Brother Alive Father Alive Maternal Grandfather Maternal Grandmother Mother Alive Paternal Grandfather Paternal Grandmother Sister Alive Social History Tobacco Use Types Packs/Day Years Used Date Smoking Tobacco: Former Cigarettes 1 10 1 12/25/2008 - 10/24/2019 Smokeless Tobacco: Never Tobacco Cessation:Counseling Given: Yes Comments:1 pack a day for 20 years Alcohol Use Standard Drinks/Week Comments Yes 0 (1 standard drink = 0.6 oz pur e alcohol) rare PHQ-2 Answer Date Recorded PHQ-2 Score 0 12/12/2019 Social Connections Answer Date Recorded Frequency of Communication with Friends and Fami ly Not on file 11/18/2021 Financial Resource Strain Answer Date R ecorded Difficulty of Paying Living Expenses Not on file 11/18/2021 Difficulty of Paying Living Expenses Not on file 11/18/2021 Sex and Gender Information Value Date Recorded Sex Assigned at Not on file Gender Identity Not on file Sexual Orientation Not on file Obstetrics History Last Filed Vital Signs Vital Sign Reading Time Taken Comments Blood Pressure 130/82 08/06/2023 4:08 PM CDT Pulse 76 08/06/2023 4:08 PM CDT Temperature 36.6 ??C (97.8 ??F) 07/28/2023 9:22 AM CD T Respiratory Rate 14 08/06/2023 4:08 PM CDT Oxygen Saturation 97% 08/06/2023 4:08 PM CDT Inhaled Oxygen Concentration - - Weight 119 kg (262 lb 6.4 oz) 08/06/2023 4:08 PM CDT Height 180.3 cm (5' 11) 08/06/2023 4:08 PM CDT Body Mass Index 36.6 08/06/2023 4:08 PM CDT Plan of Treatment Upcoming Encounters Date Type Department Care Team (Late st Contact Info) Description 12/03/2023 8:30 AM PLANT TOUR GUIDE Appointment [facility] [address] [place] [address] Elias Arita MD [address] [facility] [address] [place], [place] [id number] 12/24/2023 7:30 AM PLANT TOUR GUIDE Appointment [facility] [address] [place] [address] Health Maintenance Due Date Last Done Comments Hepatitis B series for Diabe murphy (1 of 3 - 3-dose series) 1980 Pneumococcal series for age 6-64 (1 of 2 - PCV) 01/25/1986 Tdap 01/25/1991 Hepatitis C screening for ag e 18-79 01/25/1998 Tetanus booster 11/22/2002 11/22/1992 Depression screening for age 12+ 10/25/2020 10/25/20 19, 10/24/2019 COVID-19 vaccine series (2022- season) 2023 03/12/2021, 02/12/2021 Influenza for age 9-49 07/23/2023 BMI (ht and wt on same day) for age 18+ 08/06/2024 08/06/2023, 07/21/2023, 04/29/2020, Additional history exists Lipids for age 35-44 07/26/2028 07/26/2023, 08/08/2021, 10/25/2019, Additional history exists HIV for age 15-65 Completed 05/14/2010 Advance Directives Latest Code Status on File Code Status Date Activated Date Inactivated Comments Full Code 07/22/2023 1:03 AM 07/28/2023 6:16 PM Question Answer Comments Code Status Discussion: Reviewed Preferences Code Status History Code Status Date Activated Date Inactivated Comments Full Code 11/12/2019 3:08 AM 11/15/2019 12:38 PM Question Answer Comments Code Status Discussion: Discussed Full Code 10/24/2019 12:02 PM 10/25/2019 7:31 PM Full Code 05/13/2010 5:14 PM 05/14/2010 8:19 PM Care Teams Internal Medicine Specialist Relationship Specialty Start Date End Date Nathaniel Gamino MD PCP - General 05/13/10
== END 2023-11-29 08:01 | disposition home or self-care (01) ==
LOC: NFLDREF 12-02 10:00
PROVIDERS: PCP Internal Medicine; Referring Provider Internal Medicine; Visit Provider Internal Medicine
DX: E11.9 Type 2 diabetes mellitus without complications (principal); Z13.220 Encounter for screening for lipoid disorders
CPT/HCPCS: 80053; 80061

== ENCOUNTER 2024-07-04 08:20 | Outpatient (CLI) | payer OTHER, SELFPAY ==
--- OUTSIDE RECORDS SUMMARY | 2024-07-07 08:28 | XMS_ITS | Referral Summary ---
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 For routine questions regarding patient records, call [phone] during business hours, M-F 8:00 AM - 5:00 PM Central Time. Record requests for emergency care only can be directed to [phone] at any time.[facility] Allergies No known active allergies Medications Medication Sig Dispensed Refills Start Date End Date Status aspirin 81 mg chewable tablet Chew 81 mg daily. 10/25/2019 Ac tive atorvastatin (LIPITOR) 40 mg tablet Take 40 mg by mouth every evening. Active clobetasoL (CLOBEX) 0.05 % lotion Apply 1 Application topically at bedtime as needed. Active amphetamine-dextro amphetamine (ADDERALL XR) 30 mg 24 hr capsule Take 30 mg by mouth daily. Active amphetamine-dextro amphetamine (ADDERALL XR) 10 mg 24 hr capsule Take 10 mg by mouth daily. Active albuterol 90 mcg/actuation inhaler Inhale 2 puffs every 6 (six) hours as needed for wheezing or shortness of breath. 03/15/2007 Active EPINEPHrine 0.3 mg/0.3 mL injection syringe Inject 0.3 mg intramuscularly as needed for anaphylaxis. 12/10/2016 Active glyBURIDE (DIABETA) 5 mg tablet Take 5 mg by mouth 2 (two) times a day with meals. Active losartan (COZAAR) 100 mg tablet Take 100 mg by mouth daily. Active metFORMIN (GLUCOPHAGE) 1,000 mg tablet Take 1,000 mg by mouth 2 (two) times a day with meals. Active nitroglycerin (NITROSTAT) 0.[address] 0.4 mg under the tongue every 2 (two) hours as needed for chest pain. 10/25/2019 Active sodium bicarb-sodium chloride 2.7 % aerosol,spray Administer 1 spray into nostril(s) 5 (five) times a day. Active triamcinolone (NASACORT) 55 mcg/actuation nasal spray Administer 1 spray into each nostril daily. Active sotaloL (BETAPACE) 120 mg tablet Take 120 mg by mouth every 12 (twelve) hours. 05/04/2023 Active zolpidem (AMBIEN) 10 mg tablet Take 10 mg by mouth at bedtime. Active ticagrelor (BRILINTA) 90 mg tablet Take 90 mg by mouth 2 (two) times a day. 07/28/2023 Active insulin glargine (Lantus Solostar U-100 Insulin) 100 unit/mL (3 mL) injection Inject 15 Units under the skin at bedtime. 12/16/2022 Active metoprolol tartrate (LOPRESSOR) 25 mg tablet Take 25 mg by mouth 2 (two) times a day. 08/23/2023 Active isosorbide mononitrate (IMDUR) 60 mg 24 hr tablet Take 60 mg by mouth daily. 08/06/2023 Active amlodipine besylate (AMLODIPINE ORAL) Take by mouth. 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 EF 65%. - 10/24/19 NSTEMI, KYRA to distal RCA Supraventricular Tachycardia, Unspecified 2018 Overview (07/08/2023): -11/14/2019 EPS and ablation of tricuspid annular [...] your living situation today? I have a [facility] place to live 07/08/2023 Sex and Gender Information Value Date Recorded Sex Assigned at Male 07/08/2023 1:48 PM CDT Gender Identity Male 07/08/2023 1:48 PM CDT Sexual Orientation Straight 07/08/2023 1: 48 PM CDT Plan of Treatment Not on file [phone] [facility] [place] [phone]
--- OUTSIDE RECORDS SUMMARY | 2024-07-07 08:28 | XMS_ITS | Clinical Summary ---
Author Organization [facility] Address [address] [place] [address] Care Team Providers Care Set Rider Name Role Phone Unavailable Primary Care Provider Unavailabl e Source Comments Patient records contain information from all sites at [facility]. For routine questions regarding patient records, call [phone] during business hours, M-F 8:00 AM - 5:00 PM Central Time. Record requests for emergency care only can be directed to [phone] at any time.[facility] Allergies No known active allergies Medications [...] high TG Atherosclerotic Heart Diseas e Of [place] Coronary Artery Without Angina Pectoris 07/08/2023 Overview [...] your living situation today? [facility] 07/08/2023 Sex and Gender Information Value Date Recorded Sex Assigned at Male 07/08/2023 1:48 PM CDT Gender Identity Male 07/08/2023 1:48 PM CDT Sexual Orientation Straight 07/08/2023 1: 48 PM CDT Plan of Treatment Health Maintenance Due Date Last Done Comments Diabetic Office Visit with Foot Exam 1980 Dilated Eye Exam 1980 HIV Screening 1980 Hepatitis C Screening 1980 Office Visit for Blood Pressure Check / Re-check 1980 Urine Albumin 1980 Pneumococcal vaccine (0-64 years) (1 of 2 - PCV) 01/25/1986 Hepatitis B Vaccines (1 of 3 - 19+ 3-dose series) 01/25/1999 Hemoglobin A1C 04/25/2020 10/25/2019 COVID-19 Vaccine ( - 2022-24 season) 2023 03/12/2021, 02/12/2021 Depression Screening (Annual PHQ-2) 11/22/2023 Creatinine Level (Kidney Function Test) 07/27/2024 07/27/2023, 07/25/2023, 07/24/2023, Additional history exists Sodium Level 07/27/2024 07/27/2023, 01/2023, 07/24/2023, Additional history exists Potassium Level 07/28/2024 07/28/2023, 03/2023, 07/26/2023, Additional history exists Influenza Vaccine (#1) 2024 12/01/2023 Lipid (Cholesterol) Screening 07/26/2028 07/26/2023, 08/08/2021, 10/25/2019 DTaP,Tdap,and Td Vaccines (7 - Td or Tdap) 04/10/2030 04/10/2020, 07/18/1997, 11/22/1992, Additional history exists HPV Vaccines Aged Out No longer eligi ble based on patient's age to complete this topic [place] [phone]
--- OUTSIDE RECORDS SUMMARY | 2024-07-07 08:28 | XMS_ITS | Clinical Summary ---
Author Organization [employer] [facility] Address [place], [place] [address] Care Team Providers Care Sales Service Route Manager Name Role Phone Nathaniel Gamino MD Primary Care Provider [phone] Allergies Active Allergy Reactions Criticality Noted Date Comments Chlorhexidine Itching 12/24/2023 Medications Medication Sig Dispensed Refills Start Date End Date Status EPINEPHrine (EPIPEN) 0.3 mg/0.3 mL injectionIndication s:Anaphylactic reaction, initial encounter Inject 0.3 mg intramuscular one time if needed for Allergic Reaction for up to 1 dose. 2 Each 12/10/19 17 Active dextroamphetamine-a mphetamine (ADDERALL XR) 30 mg Extended-Release capsule Take 30 mg by mouth every morning Active dextroamphetamine-a mphetamine (ADDERALL XR) 10 mg Extended-Release capsule Take 10 mg by mouth once daily in the afternoon Take at 1 pm Active triamcinolone, 55 mcg each actuation, nasal (NASACORT) 55 mcg nasal spray Inhale 1 [place] to both nostrils once daily if needed for Rhinitis. Active Clobetasol Propionate 0.05 % lotion Apply topically to affected area(s) once daily if needed for Other (Specify) (eczema). Active amLODIPine (NORVASC) 5 mg tabletIndications:E ssential hypertension Take 2 Tablets (10 mg) by mouth once daily. 90 Tablet 3 07/28/20 23 Active zolpidem (AMBIEN) 10 mg tabletIndications:E ssential hypertension Take 1 Tablet (10 mg) by mouth at bedtime. 07/28/20 23 Active atorvastatin (LIPITOR) 40 mg tabletIndications:N STEMI (non-ST elevated myocardial infarction) (HC) Take 1 Tablet (40 mg) by mouth at bedtime. 90 Tablet 3 08/06/20 23 Active isosorbide mononitrate (IMDUR) 60 mg extended release tablet 24 hourIndications:Uns table angina (HC) Take 1 Tablet (60 mg) by mouth once daily. 90 Tablet 3 08/06/20 23 Active nitroglycerin (NITROSTAT) 0.4 mg sublingual tabletIndications:N STEMI (non-ST elevated myocardial infarction) (HC) Place 1 Tablet (0.4 mg) under the tongue every 5 minutes if needed for Chest Pain. 25 Tablet 3 08/06/20 23 Active oxymetazoline (Afrin, oxymetazoline,) 0.05 % nasal spray Inhale 1 [place] into affected nostril(s) 2 times daily if needed for Nasal Congestion. Active losartan (COZAAR) 100 mg tabletIndications:H ypertension Take 100 mg by mouth once daily. 12/23/19 24 Active albuterol HFA (PRO-AIR; VENTOLIN; PROVENTIL) 90 mcg/actuation inhaler Inhale 2 Puffs by mouth 4 times daily if needed. Active apixaban (ELIQUIS) 5 mg tabletIndications:p revent thromboembolism in chronic atrial fibrillation Take 1 Tablet (5 mg) by mouth two times daily. 60 Tablet 5 02/16/20 24 Active LORazepam (ATIVAN) 0.5 mg tabIndications:Anxi ety Take 1 Tablet (0.5 mg) by mouth one time for 1 dose. Take one hour prior to CT study. Do not drive while taking ativan. 1 Tablet 04/21/20 24 Active sotaloL (BETAPACE) 120 mg tabletIndications:V T (ventricular tachycardia) (HC),PVC's (premature ventricular contractions),SVT (supraventricular tachycardia) (HC) Take 1 Tablet (120 mg) by mouth every 12 hours. 180 Tablet 3 05/31/20 24 Active Lantus Solostar U-100 Insulin 100 unit/mL (3 mL) penIndications:Diab etes mellitus type 2, noninsulin dependent (HC) Inject 40 units subcutaneous before bedtime. Increase or decrease by 3 units every 3 days to achieve fasting glucose of 100-150. Up to 80 units daily. 45 mL 3 06/23/20 24 Active metFORMIN (GLUCOPHAGE) 1,000 mg tabletIndications:D iabetes mellitus type 2, noninsulin dependent (HC) Take 1 Tablet (1,000 mg) by mouth two times daily with meals. 180 Tablet 06/23/20 24 Active glipiZIDE extended-release (GLUCOTROL XL) 5 mg Extended-Release tabletIndications:D iabetes mellitus type 2, noninsulin dependent (HC) Take 1 Tablet (5 mg) by mouth once daily before a meal. 90 Tablet 06/23/20 24 Active dilTIAZem CD (CARDIZEM CD) 120 mg extended release 24 hr capsuleIndications: Paroxysmal atrial fibrillation (HC) Take 1 Capsule (120 mg) by mouth two times daily. 120 Capsule 3 06/23/20 24 Active dulaglutide (Trulicity) 0.75 mg/0.5 mL subcutaneous penIndications:Diab etes mellitus type 2, noninsulin dependent (HC) Inject 0.75 mg subcutaneous once weekly. Take in place of Ozempic due to insurance coverage. 4 Pen 11 06/26/20 24 Active clopidogreL (Plavix) 75 mg tabletIndications:V T (ventricular tachycardia) (HC),Contraindicati on to percutaneous coronary intervention (PCI) Take 1 Tablet (75 mg) by mouth once daily. 90 Tablet 06/29/20 24 Active Lantus Solostar U-100 Insulin 100 unit/mL (3 mL) pen Inject 25 units subcutaneous before bedtime. 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 12/23/19 024 Discontinued(*I P Discontinued) metFORMIN (GLUCOPHAGE) 1,000 mg tablet Take 1,000 mg by mouth two times daily with meals. 12/23/19 24 024 Discontinued clopidogreL (Plavix) 75 mg tabletIndications:V T (ventricular tachycardia) (HC),Contraindicati on to percutaneous coronary intervention (PCI) Take 1 Tablet (75 mg) by mouth once daily. Continue to July follow up with Dr. Arita. 90 Tablet 1 02/16/20 24 024 Discontinued(Re order (E-cancel not sent)) metoprolol tartrate (LOPRESSOR) 50 mg tabletIndications:P VC's (premature ventricular contractions),SVT (supraventricular tachycardia) (HC) Take 1 Tablet (50 mg) by mouth three times daily. 180 Tablet 1 05/31/20 24 024 Discontinued(*I P Discontinued) semaglutide (Ozempic) 2 mg/3 mL subcutaneous penIndications:Diab etes mellitus type 2, noninsulin dependent (HC) Inject 0.25 mg weekly for 4 weeks, then increase to 0.5 mg weekly thereafter. 3 Pen 4 06/23/20 24 024 Discontinued(*M ed complete/Regime n complete/Level of care change) Active Problems Problem Noted Date Diagnosed Date Other ventricular tachycardia 02/11/2024 Paroxysmal atrial fibrillation 02/11/2024 Atrial fibrillation with rapid ventricular respo nse 02/09/2024 Frequent PVCs 12/23/2023 S/P drug eluting coronary stent placement 2023 DUKE (dyspnea on exertion) 12/23/2023 NSVT (nonsustained ventricular tachycardia) 06/24 Non-sustained ventricular [...] (coronary artery disease) Overview: - NSTEMI s/p ASSEMBLER SANDAL PARTS/KYRA LAD, PTCA, intravascular lithotripsy and overlapping KYRA [...] Encounters Date Type Department Care Team Description 07/03/2024 2:00 PM CDT Patient Outreach [facility] [address] [place] [address] Telehealth (DM education) 07/02/2024 Travel 06/29/2024 [place]phone [facility] [address] [facility] [address] [place] [address] Elias Arita MD Medication Management 06/26/2024 Telephone [facility] [address] [facility] [address] [place] [phone] Maurice Holliday MD Medication Management (Ozempic) 06/23/2024 8:27 AM CDT Anesthesia Event [facility] [address] [place] [address] Gene Alejandre MD 06/23/2024 5:51 AM CDT - 06/23/2024 2:55 PM CDT Hospital Encounter [facility] [address] [place] [address] Elias Arita MD Peatross, Carter McAllen, MD Atrial fibrillation with rapid ventricular response (HC) (Primary Dx); Diabetes mellitus type 2, noninsulin dependent (HC); Paroxysmal atrial fibrillation (HC) Discharge Disposition: Home Self Care 06/23/2024 Travel 06/16/2024 [place]phone [facility] [address] [facility] [address] [place] [address] Elias Arita MD Questions 06/12/2024 Telephone [facility] [address] [place] [address] Pearl Witt RN, CCRN EP Scheduling 06/05/2024 Telephone [facility] [address] [place] [address] Ariana Santos PA 05/31/2024 1:30 PM CDT Office Visit [address] [place] [address] Ariana Santos PA Follow Up (Follow up post ICD placement , /Device ck done today , ) 05/31/2024 Orders Only [address] [place] [address] Hank Mcrae 1 scan: (1-Ord) [facility] WH: EKG final signed 05/31/24 05/30/2024 Travel 05/24/2024 6:33 AM CDT - 05/24/2024 11:59 PM CDT Hospital Encounter [facility] [address] [place] [address] Yoav Garcia MD Left arm swelling 05/23/2024 4:40 PM CDT - 05/23/2024 8:02 PM CDT Emergency [address] [address] Kun Cadena DO Leonard, Kyle Palpitations (Primary Dx); PVC (premature ventricular contraction); SVT (supraventricular tachycardia) (HC); Chest pain, unspecified type; PVC's (premature ventricular contractions) Discharge Disposition: Home Self Care 05/23/2024 Travel 05/23/2024 Telephone [facility] [address] [facility] [address] [place] [address] Miranda Motta RN Device Check (Unscheduled remote, Patient sent for rapid heart rates this morning.) 05/23/2024 Telephone [facility] [address] [place] [address] Yoav Garcia MD Prior Authorization 05/03/2024 Telephone [facility] [address] [place] [address] Yoav Garcia MD Imaging 05/01/2024 11:21 AM CDT - 05/01/2024 11:59 PM CDT Hospital Encounter [facility] [address] [place] [address] Soledad Laird PA 05/01/2024 Telephone [facility] [address] [place] [address] Yoav Garcia MD Appointment 04/27/2024 10:15 AM CDT Nurse/Clinic Staff Only [facility] [address] [place] [address] Device Check (ePatch returned) 04/25/2024 Telephone [facility] [address] [place] [address] Yoav Garcia MD Imaging 04/25/2024 Telephone [facility] [address] [address] Yoav Garcia MD Questions 04/24/2024 8:15 AM CDT Nurse/Clinic Staff Only [facility] [address] [place] [address] Device Check (72 HOUR EPATCH PLACEMENT ) 04/24/2024 Travel 04/21/2024 Orders Only [facility] [address] [place] [address] Jeanne Maxwell PA <No scans attached> 04/21/2024 Telephone [facility] [address] [place] [address] Yoav Garcia MD Medication Management 04/20/2024 8:00 AM CDT Office Visit [facility] [address] [place] [address] Yoav Garcia MD CV Vascular New (Consult Left arm pain ,Left arm swelling ICD (implantable cardioverter-defibri llator) in place no imaging needed) 04/20/2024 Travel 04/14/2024 Telephone [facility] [address] [phone] Elias Arita MD Results (venogram) 04/12/2024 Telephone [facility] [address] [phone] Elias Arita MD Form; Questions 04/12/2024 Telephone [facility] [address] [phone] Elias Arita MD Procedure 04/11/2024 8:16 AM CDT Anesthesia Event [facility] [address] [place] [address] Mae Sosa MD 04/11/2024 5:33 AM CDT - 04/12/2024 1:55 PM CDT Hospital Encounter [facility] [address] [place] [address] Elias Arita MD Anderson, Rebecca Faye, MD Marong, Kemo, CRNA Frequent PVCs (Primary Dx) Discharge Disposition: Home Self Care 04/11/2024 Travel 04/06/2024 Telephone [facility] [address] [phone] Elias Arita MD Procedure from Last 3 Months Immunizations Name Administration [...] 10/24/2019 Smokeless Tobacco: Never Tobacco Cessation:Counseling Given: Not Answered Comments:1 pack a day for 20 years Alcohol Use Standard Drinks/Week Comments Yes 0 (1 standard drink = 0.6 oz pur e alcohol) rare PHQ-2 Answer Date Recorded PHQ-2 Score 0 12/12/2019 Social Connections Answer Date Recorded Frequency of Communication with Friends and Fami ly 0 02/09/2024 Financial Resource Strain Answer Date R ecorded Difficulty of Paying Living Expenses 3 02/09/2024 Difficulty of Paying Living Expenses Not on file 02/09/2024 Food Insecurity Answer Date Recorded Worried About Running Out of Food in the Last Ye ar 1 02/09/2024 Transportation Needs Answer Date Record ed Lack of Transportation (Medical) 1 02/09/2024 Housing Stability Answer Date Recorded Unable to Pay for Housing in the Last Year 1 02/09/2024 Sex and Gender Information Value Date Recorded Sex Assigned at Not on file Gender Identity Not on file Sexual Orientation Not on file Obstetrics History Last Filed Vital Signs Vital Sign Reading Time Taken Comments Blood Pressure 140/74 06/23/2024 2:45 PM CDT Pulse 80 06/23/2024 2:45 PM CDT Temperature 36.8 ??C (98.2 ??F) 06/23/2024 2:45 PM CD T Respiratory Rate 18 06/23/2024 2:45 PM CDT Oxygen Saturation 98% 06/23/2024 2:45 PM CDT Inhaled Oxygen Concentration - - Weight 113.4 kg (250 lb) 06/23/2024 6:40 AM CDT Height 180.3 cm (5' 11) 06/23/2024 6:40 AM CDT Body Mass Index 34.87 06/23/2024 6:40 AM CDT Plan of Treatment Upcoming Encounters Date Type Department Care Team (Late st Contact Info) Description 08/30/2024 2:30 PM CDT Card[facility] [address] [place] [address] 09/27/2024 Cardiac Device Check [facility] [phone] 09/27/2024 11:30 AM TOOL AND 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 MAKER APPRENTICE Office Visit [facility] [address] [place] [address] Ariana Santos PA [address] [facility] [address] [place] [address] Health Maintenance Due Date Last Done Comments Pneumococcal series for age 6-64 (1 of 2 - PCV) 01/25/1986 Tdap 01/25/1991 Hepatitis C screening for ag e 18-79 01/25/1998 Hepatitis B series for Diabe murphy (1 of 3 - 19+ 3-dose series) 01/25/1999 Tetanus booster 11/22/2002 11/22/1992 Depression screening for age 12+ 10/25/2020 10/25/20 19, 10/24/2019 COVID-19 vaccine series (2022-24 season) 2023 03/12/2021, 02/12/2021 Influenza for age 9-49 07/23/2024 BMI (ht and wt on same day) for age 18+ 05/31/2025 05/31/2024, 01/28/2024, 08/06/2023, Additional history exists Lipids for age 35-44 12/23/2028 12/23/2023, 07/26/2023, 08/08/2021, Additional history exists HIV for age 15-65 Completed 05/14/2010 Procedures Procedure Name Priority Date/Time Associated Diagnosis Comments GLUCOSE METER Timed 06/23/2024 11:26 AM CDT CV PROCEDURE TO BE PERFORMED Routine 06/23/2024 10:38 AM CDT HCHG ACTIVATED CLOTTING TM CV Timed 06/23/2024 10:31 AM CDT GLUCOSE METER Timed 06/23/2024 10:20 AM CDT EP STUDY /ABLATION Routine 06/23/2024 9: 00 AM CDT GLUCOSE METER Timed 06/23/2024 7:53 AM CDT EKG 12 LEAD Preop 06/23/2024 6:40 AM CDT CBC W PLT NO DIFF Preop 06/23/2024 6:3 6 AM CDT BASIC METABOLIC PANEL Preop 06/23/2024 6:35 AM CDT EKG 12 LEAD Routine 05/31/2024 PVC's (premature ventricular contractions) SVT (supraventricular tachycardia) (HC) CT ANGIO UPPER EXTREMITY LEFT Routine 05/24/2024 8:01 AM CDT Left arm swelling CT CHEST W Routine 05/24/2024 8:01 AM CDT Left arm swelling CREATININE,ISTAT Routine 05/24/2024 6:48 AM CDT TROPONIN T (HS) ONE TIME Timed 05/23/2024 7:08 PM CDT TROPONIN T (HS) ACUTE W/2HR REFLEX STAT 05/23/2024 5:08 PM CDT MAGNESIUM STAT 05/23/2024 5:08 PM CDT BASIC METABOLIC PANEL STAT 05/23/2024 5:08 PM CDT CBC W PLT NO DIFF STAT 05/23/2024 5:0 8 PM CDT EKG 12 LEAD STAT 05/23/2024 4:46 PM CDT SCAN-PACER 05/23/2024 12:00 AM CDT HOLTER MONITOR Routine 05/01/2024 12:00 AM CDT VT (ventricular tachycardia) (HC) GLUCOSE METER Timed 04/12/2024 12:04 PM CDT IR VENOGRAM MISC Routine 04/12/2024 9:18 AM CDT SCAN-CARDIAC STRIP 04/12/2024 7: 35 AM CDT GLUCOSE METER Timed 04/12/2024 7:21 AM CDT EKG 12 LEAD Early AM 04/12/2024 5:43 AM CDT SCAN-CARDIAC STRIP 04/12/2024 12 :25 AM CDT GLUCOSE METER Timed 04/11/2024 9:11 PM CDT SCAN-CARDIAC STRIP 04/11/2024 7: 35 PM CDT GLUCOSE METER Timed 04/11/2024 6:01 PM CDT US ARTERIAL LOWER EXTREMITY PSEUDOANEURYSM APPLE 04/11/2024 4:24 PM CDT CV PROCEDURE TO BE PERFORMED Routine 04/11/2024 1:36 PM CDT SCAN-CARDIAC STRIP 04/11/2024 1: 23 PM CDT SCAN-CARDIAC STRIP 04/11/2024 12 :18 PM CDT GLUCOSE METER Timed 04/11/2024 11:57 AM CDT GLUCOSE METER Timed 04/11/2024 9:32 AM CDT EP STUDY /ABLATION Routine 04/11/2024 8: 53 AM CDT EKG 12 LEAD Preop 04/11/2024 6:28 AM CDT CBC W PLT NO DIFF Preop 04/11/2024 6:1 8 AM CDT BASIC METABOLIC PANEL Preop 04/11/2024 6:18 AM CDT LIPID PANEL APPLE 12/23/2023 7:47 AM TOOL AND DIE MAKER APPRENTICE RAPID HIV SCREEN STAT 05/14/2010 2:30 PM CDT from Last 3 Months or Most Recently Relevant to Health Maintenance Results * (ABNORMAL) GLUCOSE METER (06/23/2024 11:26 AM CDT) Only the most recent of9 resultswithin the time period is included. GLUCOSE METER 259(H) 65 - 100 mg/dL 06/23/2024 11:31 AM CDT [facility] Blood BLOOD SPECIMEN / Unknown 06/23/2024 11:26 AM CDT 06/23/2024 11:31 AM CDT Elias Arita MD CHEMISTRY Performing Organization Address City/State/[facility] Co de Phone Number [facility] [address] [place] [address] * EP Procedure to be Performed (06/23/2024 10:38 AM CDT) Narrative Elias Arita MD - 06/23/2024 10:38 AM CDT Elias Arita MD ? 06/23/2024 10:46 AM Cardiac Electrophysiology Immediate Post Procedure Note Preoperative Diagnosis: ??PVCs, SVT Procedure: ??EP study with RVOT PVC ablation, isoproternol infusion Findings/Conclusions: ??Same as above, no inducible SVT on isoproternol, two other infrequent PVCs not ablated Postoperative Diagnosis: ??Same as preoperative diagnosis Complications: ??NA Personally monitored patient with conscious sedation during procedure: No Estimated Blood Loss: ??minimal Specimen: ??N/A Plan: 1) Sheath pull now (patient had 8F, 7F RFV) 2) Apixaban 5mg po bid when able to take pos 3) Bed rest X 3 hours 4) Anticipate discharge later today. 5) Other medication changes: discontinue metoprolol and start diltiazem 120 mg XL bid 6) Follow-up in EP clinic in 3 months or sooner as necessary. 7) Endocrinology consult Surgeon: Elias Arita MD Elias Arita MD FURNACE CARETAKER ORD * (ABNORMAL) ACTIVATED CLOTTING TIME ONS577 ACT (06/23/2024 10:31 AM CDT) ACTIVATED CLOTTING TIME, POCT 316(H) 74 - 125 sec 06/23/2024 3:24 PM CDT [facility] Blood BLOOD SPECIMEN / Unknown 06/23/2024 10:31 AM CDT 06/23/2024 3:24 PM CDT Elias Arita MD HEMATOLOGY [facility] [address] [address], * EP STUDY /ABLATION (06/23/2024 9:00 AM CDT) Anatomical Region Laterality Modality X-Ray Angiograph y, X-Ray Angiography 06/23/2024 9:00 AM CDT Narrative Transcriptions Elias Arita MD - 06/23/2024 4:28 PM CDT [facility] Electrophysiology Procedure Report Name: BREANNA BOYLE Event Date: 06/23/2024 [facility] ID #: [id number] Date: 1980 Gender: Male Age: [address] [facility] #: [id number] Procedure Performed By: ELIAS ARITA [facility] Primary Scales Inspector: ELIAS ARITA Referring Physician: Summary / Conclusions VASCULAR ACCESS * Using ultrasound guidance and a percutaneous technique, the rightfemoral vein was accessed. Ultrasound was used to confirm vessel patency,localizing needle into the lumen of the vessel. For safety purposes, apicture was saved for the medical record. ARRHYTHMIA * RVOT PVC's successfully ablated. POST ABLATION * Patient observed for at least 30 minutes post ablation, prior tocatheter removal. * Post ablation testing with isoproterenol infusion revealed normal basicintervals. Recommendations / Plan 1) Sheath pull now (patient had 8F, 7F RFV) 2) Apixaban 5mg po bid when able to take pos 3) Bed rest X 3 hours 4) Anticipate discharge later today. 5) Other medication changes: discontinue metoprolol and start [id number] mg XL bid 6) Follow-up in EP clinic in 3 months or sooner as necessary. 7) Endocrinology consult Pre-Operative Diagnosis ? PVC, Symptomatic ? SVT (Supraventricular Tachycardia) Post-Operative Diagnosis ? RVOT PVCs Indications ? Same as Pre-operative diagnosis Brief Patient History In summary, Mr. Boyle is a 44-year-old gentleman with past medical historyof HTN, coronary artery disease status post PCI, poorly controlled type 2diabetes, obesity, hypertension, obstructive sleep apnea, atrialtachycardia s/p ablation and symptomatic PVCs and VT who is s/p DDD ICDimplant on 02/12/[address] Dasilva. He has had ongoing PVCs and VTdespite sotalol 120 mg po bid and had an RVOT PVC ablation on 04/11/24. Hedid well for a week but is now having recurrent PVCs that are symptomatic.He has also had SVT that has taken him to the ED. He presents for an EPstudy with PVC +/- SVT ablation. Consent & Lisle Protocol Lisle protocol was followed. TIME OUT conducted just prior tostarting procedure confirmed patient identity, site/side, procedure,patient position, and availability of correct equipment and implants (ifapplicable). The risks, benefits, and alternatives of the procedure were discussed withthe patient and written informed consent was obtained. Procedure Description After confirmation of informed consent, the patient was brought to theprocedure room in sinus rhythm with intermittent PVCs and couplets (LBBBwith no r wave in V1, + in II, III, aV, - in aVL, aVR). The procedure wasperformed with variable sedation with the assistance of the anesthesiateam - the PVCs would suppress with sedation but come back with lighteningsedation. The patient was prepped and draped in the usual sterile fashion. After a time out, 2 venous sheaths were placed in the RFV under ultrasoundguidance using local anesthesia and the modified seldinger technique (8F,7F). An F/D decapolar catheter was placed in the CS and an F/D irrigatedcontact force ablation catheter was advanced to the his region to create ahis map. A complete EP study was performed: the HV interval was normal,concentric VA conduction was present and there was no evidence of dualAV-jose physiology with single atrial extrastimuli. We then advancedthe ablation catheter to the RVOT area and mapped the PVC to theantero-septal RVOT (the same location as prior ablation). I thenexchanged for an Optrell catheter to refine the map. The earliest spotfor ablation was 24 ms pre-QRS. Sequential ablations were delivered inthe earliest area which resulted in cessation of the PVC. I deliveredseveral additional ablation lesions in the same area. No PVCs were seenafter the 4th ablation lesion and after waiting for 30 minutes both on andoff isoproternol at 4 mcg/minute. Burst pacing and double atrial extrastimuli did not induce any SVT onisoproternol at 4 mcg/minute. The catheters were removed from the body.The sheaths were pulled and hemostasis achieved by manual compression. Thepatient tolerated the procedure well and there were no immediatecomplications. Electrophysiology Study Data Basic Intervals Study State Underlying Rhythm Cycle Length [place] PA AH HV QRS [place] QRSMorphology Baseline NSR 624 133 88 40 Post Ablation NSR 571 121 Antegrade 1:1 AV Node Function Study State Pacing Site AV Node SCL 1:1 AH HV Dual AVN Physiology? AVNFast 1:1 AVN Slow 1:1 Wenkebach Cycle Length Baseline CS 290 280 Refractory Periods Study State Pacing Site Paced Cycle Length Paced Cycle ERP AVN ERP DualNode Physiology? AVN ERP (fast) AVN ERP (slow) Post Ablation Isuprel CS 500 270 Post Ablation Isuprel CS 450 270 Electrophysiology Procedure Results SINUS NODE * The sinus node conduction is normal. AV NODE * The AV node conduction is normal. HIS/PURKINJE SYSTEM * The His/Purkinje system conduction is normal. Ablation Data PVCs Energy Source Ablation Catheter Used Rhythm During Ablation # of AttemptsMax Resendiz Max Temp. Result RF Q-Dot Ablation Catheter D-F Curve NSR 14 35 28 Success PVC's originating in the right ventricular outflow tract were mapped andablated. Comments: Total Ablation Time: 457 sec Catheter Use Catheter Type Catheter Description Insertion Site Intracardiac Site SheathSize Sheath Type Sheath Description Diagnostic/Map DecaNav F-Curve Decapolar 2-8-2 spacing Right Femoral VeinCS 7 Fr Standard Sidearm Ablation QDot Micro Bi-Directional Navigation Catheter, D-F-Curve RightFemoral Vein Map/Abl 8Fr Standard Sidearm Diagnostic OPTRELL D-F Curve Right Femoral Vein Map/Abl 8Fr StandardSidearm Procedure(s) Performed ? [facility] Ultrasound used for vascular access ? VT/Ventricular Ectopy Ablation ? CS/LA Catheter pace/recording ? Programmed stimulation after drug Infusion (e.g.,Isoproteronol) Auxiliary Device Intracardiac Echo Used: Yes Mapping System 1: Carto Procedure Detail Estimated Blood Loss: < 50 ml Specimen Collected: None Level of Sedation Achieved: See Anesthesia Note Total Flouro Time: 2 TECHNICAL RESEARCH SCIENTIST Total Flouro Dose: 3 mGy Staff Name Role Elias Arita Scales Inspector Miranda Ordonez CRNA, Jovany EPT Monitor hSahnaz Corey EPT Scrub Darrin Zimmer EPT Manager Account Management Neha Abad RN Nurse Medications Ordered and Administered Start Time Stop Time Medication Dose Units Route Ordered By Given By 09:03 0.25% Bupivicaine 7 mL Subcut MD Elias Damon MD 09:12 Heparin 5000 Units IV MD Neha Damon RN 10:02 (New Bag) Isoproterenol (Isuprel) 3 mcg per min IV MD Neha Reynoso RN 10:39 Protamine 30 Mg IV MD Neha Damon RN The anesthesia service monitored the patient?s conscious sedation duringthe procedure. The medications listed above were verbally ordered by me and read back tome as documented above. Refer to the hemodynamic procedure log report for additional casedetails. electronically signed on 06/23/2024 4:28:34 PM with status of Final Elias Arita MD Scales Inspector [facility] [address] [place] [address] (p) [phone](f) Elias Arita MD CV IMAGING * EKG (06/23/2024 6:40 AM CDT) Only the most recent of5 resultswithin the time period is included. Interpretation Sinus rhythm with occasional Premature ventricular complexes Incomplete right bundle branch block Borderline ECG When compared with ECG of 23-May-2024 16:46, Incomplete right bundle branch block is now Present BEYOND NOW Ventricular Rate 78 BPM BEYOND NOW Atrial Rate 78 BPM BEYOND NOW P-R Interval 148 ms BEYOND NOW QRS Duration 96 ms BEYOND NOW QT 410 ms BEYOND NOW QTc 467 ms BEYOND NOW P [place] 41 degrees BEYOND NOW R [place] -15 degrees BEYOND NOW T [place] 55 degrees BEYOND NOW 06/23/2024 6:40 AM CDT 06/23/2024 9:09 PM CDT Narrative BEYOND NOW - 06/23/2024 9:09 PM CDT Test Indication: PREOP Elias Arita MD EKG ORD BEYOND NOW [place], [place] * CBC with Platelet no Diff (06/23/2024 6:36 AM CDT) Only the most recent of3 resultswithin the time period is included. WHITE BLOOD COUNT 7.1 4.5 - 11.0 thou/cu mm 06/23/2024 6:52 AM CDT [facility] RED BLOOD COUNT 5.72 4.30 - 5.90 mil/cu mm 06/23/2024 6:52 AM CDT [facility] HEMOGLOBIN 16.3 13.5 - 17.5 g/dL 06/23/2024 6:52 AM CDT [facility] HEMATOCRIT 47.7 37.0 - 53.0 % 06/23/2024 6:52 AM CDT [facility] MCV 83 80 - 100 fL 06/23/2024 6:52 AM CDT [facility] MCH 28.5 26.0 - 34.0 pg 06/23/2024 6:52 AM CDT [facility] MCHC 34.2 32.0 - 36.0 g/dL 06/23/2024 6:52 AM CDT [facility] RDW 12.0 11.5 - 15.5 % 06/23/2024 6:52 AM CDT [facility] PLATELET COUNT 203 140 - 440 thou/cu mm 06/23/2024 6:52 AM CDT [facility] MPV 10.5 6.5 - 11.0 fL 06/23/2024 6:52 AM CDT [facility] NRBC 0.0 % 06/23/2024 6:52 AM CDT [facility] ABS NRBC 0.0 thou /cu mm 06/23/2024 6:52 AM CDT [facility] Blood BLOOD SPECIMEN / Unknown Non-Lab Venipuncture / Unknown 06/23/2024 6:36 AM CDT 06/23/2024 6:46 AM CDT Elias Arita MD HEMATOLOGY [facility] [address] [place] [address], * (ABNORMAL) Basic Metabolic Panel (06/23/2024 6:35 AM CDT) Only the most recent of3 resultswithin the time period is included. SODIUM 133(L) 136 - 145 mmol/L 06/23/2024 7:21 AM [facility] POTASSIUM 4.2 3.5 - 5.1 mmol/L 06/23/2024 7:21 AM [facility] CHLORIDE 99 98 - 107 mmol/L 06/23/2024 7:21 AM [facility] CO2,TOTAL 23 22 - 29 mmol/L 06/23/2024 7:21 AM [facility] ANION GAP 11 5 - 18 06/23/2024 7:21 AM [facility] GLUCOSE 305(H) 70 - 99 mg/dL 06/23/2024 7:21 AM [facility] CALCIUM 9.0 8.6 - 10.0 mg/dL 06/23/2024 7:21 AM [facility] BUN 17 6 - 20 mg/dL 06/23/2024 7:21 AM [facility] CREATININE 0.89 0.70 - 1.20 mg/dL 06/23/2024 7:21 AM CDT [facility] BUN/CREAT RATIO 19 10 - 20 7:21 AM CDT [facility] eGFR >90 >90 mL/min/1.7 3m2 06/23/2024 7:21 AM CDT [facility] Comment:As of 2022, eG FR is calculated by the CKD-EPI creatinine equation without race adjustment. ??eGFR can be influenced by muscle mass, exercise, and diet. ??The reported eGFR is an estimation only and is only applicable if the renal function is stable. Blood BLOOD SPECIMEN / Unknown Non-Lab Venipuncture / Unknown 06/23/2024 6:35 AM CDT 06/23/2024 6:44 AM CDT Elias Arita MD CHEMISTRY [facility] [address] [address], * CT ANGIO UPPER EXTREMITY LEFT (05/24/2024 8:01 AM CDT) Anatomical Region Laterality Modality SHOULDER L, ELBOW L, FOREARM L, HAND L, WRIST L Computed Tomography 05/26/2024 12:2 5 PM CDT Narrative 05/26/2024 12:25 PM CDT For Patients: ??As a result of the Century Cures Act, medical imaging exams and procedure reports are released immediately into your electronic medical record. ??You may view this report before your referring provider. ??If you have questions, please contact your health care provider. INDICATION Left arm swelling. TECHNIQUE CT examination of the chest has been performed following the uneventful administration of IV contrast viewed in the venous phase for a CT venogram examination. ??Please see accompanying report for description of the CTA chest. This examination focuses on the left upper extremity that extends down to the upper humerus level. FINDINGS The upper brachial vein is patent. Axillary vein patent. Subclavian vein patent. No evidence for compromise due to the pacemaker leads. Study does not extend down to the lower brachial area. IMPRESSION Venous structures from the upper humerus level to the right atrium are widely patent. No evidence for compromise due to the pacemaker leads. The more peripheral veins are not imaged. If there is continued concern about thrombus of the left upper extremity veins, consider a DVT ultrasound scan. Wayne Marte M.D. Interventional Radiologist MCA:tyler D&T: ??05/26/2024 Transcribed: ??12:02 p.m. [email or web address]/Dictated by: Wayne Marte MD @ 05/26/2024 11:00:00 AM (Electronically Signed) Procedure Note Wayne Marte MD - 05/26/2024 For Patients: As a result of the Cures Act, medical imagingexams and procedure reports are released immediately into your electronicmedical record. You may view this report before your referring provider.If you have questions, please contact your health care provider. INDICATION Left arm swelling. TECHNIQUE CT examination of the chest has been performed following the uneventfuladministration of IV contrast viewed in the venous phase for a CT venogramexamination. Please see accompanying report for description of the CTAchest. This examination focuses on the left upper extremity that extendsdown to the upper humerus level. FINDINGS The upper brachial vein is patent. Axillary vein patent. Subclavian veinpatent. No evidence for compromise due to the pacemaker leads. Study doesnot extend down to the lower brachial area. IMPRESSION Venous structures from the upper humerus level to the right atrium arewidely patent. No evidence for compromise due to the pacemaker leads. Themore peripheral veins are not imaged. If there is continued concern aboutthrombus of the left upper extremity veins, consider a DVT ultrasoundscan. Wayne Marte M.D. Interventional Radiologist MCA:tyler Charles& Transcribed: 12:02 p.m. [email or web address]/Dictated by: Wayne Marte MD @ 05/26/2024 11:00:00 AM (Electronically Signed) Yoav Garcia MD CT * CT CHEST W (05/24/2024 8:01 AM CDT) Anatomical Region Laterality Modality CHEST, THORAX, HEART Computed To mography 05/26/2024 12:2 5 PM CDT Narrative 05/26/2024 12:25 PM CDT For Patients: ??As a result of the Cures Act, medical imaging exams and procedure reports are released immediately into your electronic medical record. ??You may view this report before your referring provider. ??If you have questions, please contact your health care provider. INDICATION Left arm swelling, history of pacemaker. ?? TECHNIQUE A CT venogram of the chest has been performed following the uneventful administration of IV contrast. FINDINGS Heart size normal. No pericardial thickening or effusion. Pacemaker leads appear grossly intact. The battery pack is in the left chest with two leads entering via the left subclavian vein. There is no evidence for venous compromise at any location. Subclavian vein, innominate vein and SVC enhancement can be well seen surrounding the pacemaker leads. No thrombus detected within the more peripheral subclavian vein nor in the axillary vein. The internal jugular veins are widely patent. No mediastinal lymphadenopathy. No hilar lymphadenopathy. The lungs are clear. A 2.6 mm subpleural nodule noted on the right (series 3 image 65). No pleural effusion or pneumothorax. Structures of the visualized upper abdomen demonstrate no gross abnormalities. The liver, spleen, pancreas, and adrenal glands are within normal limits. Kidneys enhance symmetrically in the nephrographic phase. Visualized osseous structures demonstrate no aggressive appearing lesions. IMPRESSION 1. No evidence for venous compromise related to the pacemaker leads with normal contrast opacification of the central veins present. 2. Other incidental findings as described. Wayne Marte M.D. Interventional Radiologist [employer] [email or web address] VERONIKA/tyler / ?? tyler/Dictated by: Wayne Marte MD @ 05/26/2024 10:56:00 AM (Electronically Signed) Procedure Note Wayne Marte MD - 05/26/2024 For Patients: As a result of the Cures Act, medical imagingexams and procedure reports are released immediately into your electronicmedical record. You may view this report before your referring provider.If you have questions, please contact your health care provider. INDICATION Left arm swelling, history of pacemaker. TECHNIQUE A CT venogram of the chest has been performed following the uneventfuladministration of IV contrast. FINDINGS Heart size normal. No pericardial thickening or effusion. Pacemaker leadsappear grossly intact. The battery pack is in the left chest with twoleads entering via the left subclavian vein. There is no evidence forvenous compromise at any location. Subclavian vein, innominate vein andSVC enhancement can be well seen surrounding the pacemaker leads. Nothrombus detected within the more peripheral subclavian vein nor in theaxillary vein. The internal jugular veins are widely patent. No mediastinal lymphadenopathy. No hilar lymphadenopathy. The lungs areclear. A 2.6 mm subpleural nodule noted on the right (series 3 image 65).No pleural effusion or pneumothorax. Structures of the visualized upper abdomen demonstrate no grossabnormalities. The liver, spleen, pancreas, and adrenal glands are withinnormal limits. Kidneys enhance symmetrically in the nephrographic phase.Visualized osseous structures demonstrate no aggressive appearinglesions. IMPRESSION 1. No evidence for venous compromise related to the pacemaker leads withnormal contrast opacification of the central veins present. 2. Other incidental findings as described. Wayne Marte M.D. Interventional Radiologist [email or web address] VERONIKA/tyler / tyler/Dictated by: Wayne Marte MD @ 05/26/2024 10:56:00 AM (Electronically Signed) Yoav Garcia MD CT * CREATININE,ISTAT (05/24/2024 6:48 AM CDT) CREATININE, POCT 0.90 0.57 - 1.11 mg/dL 05/24/2024 8:57 AM CDT [facility] eGFR >90 >90 mL/min/1.7 3m2 05/24/2024 8:57 AM CDT [facility]atticS[facility] Comment:As of 2022, eG FR is calculated by the CKD-EPI creatinine equation without race adjustment. eGFR can be influenced by muscle mass, exercise, and diet. The reported eGFR is an estimation only and is only applicable if the renal function is stable. Blood BLOOD SPECIMEN / Unknown 05/24/2024 6:48 AM CDT 05/24/2024 8:57 AM CDT Yoav Garcia MD ORIENTAL RUG STRETCHER RY Performing Organization Address City/[facility]/ZIP Co de Phone Number [facility] [address] [place] [address], * (ABNORMAL) TROPONIN T (HS) ONE TIME (05/23/2024 7:08 PM CDT) TROPONIN T HS 36(H) 6-15 ng/L ng/L 05/23/2024 7:35 PM CDT [facility] Blood BLOOD SPECIMEN / Unknown Butterfly / Unknown 05/23/2024 7:08 PM CDT 05/23/2024 7:11 PM CDT Kun Cadena DO CHEMISTRY Performing Organization Address City/[facility]/ZIP Co de Phone Number [facility] [address] [place] [phone] * (ABNORMAL) TROPONIN T (HS) ACUTE W/2HR REFLEX (05/23/2024 5:08 PM CDT) TROPONIN T HS 39(H) 6-15 ng/L ng/L 05/23/2024 5:43 PM CDT [facility] Blood BLOOD SPECIMEN / Unknown IV Start / Unknown 05/23/2024 5:08 PM CDT 05/23/2024 5:12 PM CDT Narrative [facility] - 05/23/2024 5:43 PM CDT hs-cTnT (Elecsys Troponin T Gen 5) concentration (s) above the sex-specific 99th percentile (16 ng/L or greater for males or 11 ng/L or greater for females) are indicative of myocardial injury. If initial hs-cTnT <=100 ng/L at presentation, a 0h/2h ABSOLUTE (ng/L) delta change (rising or falling) of >=10 ng/L suggests a significant change, whereas a 0h/2h delta change <=3 ng/L suggests no significant change. If initial hs-cTnT >100 ng/L at presentation, a 0h/2h/ RELATIVE (percent, %) delta change of 20% is suggested to distinguish patients with acute vs. chronic myocardial injury. There are multiple etiologies that can cause hs-cTnT increases above the 99th percentile (myocardial injury) other than acute myocardial infarction. Clinical context and careful clinical evaluation are critical for diagnosis and risk-stratification. The diagnosis of acute myocardial infarction requires a rising and/or falling pattern in hs-cTnT concentrations with at least one value above the sex-specific 99th percentile PLUS at least one of the following clinical criteria: ischemic symptoms, new or presumed new significant ST-T wave changes or new LBBB, development of pathological Q waves, imaging evidence of new loss of viable myocardium or new regional wall motion abnormality, or identification of intracoronary atherothrombosis or an acute angiographic culprit on coronary angiography. In appropriate low-risk patients with a non-ischemic electrocardiogram without active chest pain with a symptom onset >3-hours without recurrence, a single initial hs-cTnT<6 ng/L identifies patient with a very low risk in emergency department patient population. Kun Cadena DO CHEMISTRY Performing Organization Address [facility] Co de Phone Number [facility] [address] [place] [address] * MAGNESIUM (05/23/2024 5:08 PM CDT) [facility] Signature MAGNESIUM 1.8 1.6 - 2.6 mg/dL 05/23/2024 5:43 PM CDT [facility] Blood BLOOD SPECIMEN / Unknown IV Start / Unknown 05/23/2024 5:08 PM CDT 05/23/2024 5:12 PM CDT Kun Cadena DO CHEMISTRY Performing Organization Address [facility] Co de Phone Number [facility] [address] [place] [address] * SCAN-PACER (05/23/2024 12:00 AM CDT) Narrative 05/23/2024 12:00 AM CDT Ordered by an unspecified provider. Other Clinical Staff OTHER * HOLTER MONITOR - frequent daily symptoms. Specify duration 24 or 48 hours. (05/01/2024 12:00 AM CDT) [facility] ORD * IR VENOGRAM MISC (04/12/2024 9:18 AM CDT) Anatomical Region Laterality Modality X-Ray Angiograph y Narrative 04/12/2024 1:06 PM CDT Examination: Left upper extremity venogram. Indication: LUE venogram to evaluate for left axillary vein stenosis s/p ICD implant Comparison: None available. Technique: The nurse obtain an IV in the arm of interest, and fluoroscopic images during a central venogram was obtained. Fluoroscopy time: 0.6 min Reference Air Kerma: 149 mGy Contrast: 15 mL Findings: A left-sided subclavian vein approach pacemaker/defibrillator is in place. ??Venogram demonstrates patency of the proximal axillary vein, however more centrally to the location of the pacemaker there is inadequate opacification. ??The subclavian vein in the lateral and midportion may be patent as there appears to be some contrast within a normal caliber vein at that location, however there is an adequate past occasion. ??Mild collaterals around the neck. ??Inadequate opacification of the brachiocephalic vein and SVC. Impression: Inadequate opacification of the left upper extremity send review structures for evaluation. Please contact me with questions. Joao Alvarez MD Vascular & Interventional Radiology [facility] Pager: [phone] [phone] [employer], Elias Arita MD IR * SCAN-CARDIAC STRIP (04/12/2024 7:35 AM CDT) Scanner OTHER * SCAN-CARDIAC STRIP (04/12/2024 12:25 AM CDT) Scanner OTHER * SCAN-CARDIAC STRIP (04/11/2024 7:35 PM CDT) Scanner OTHER * US ARTERIAL LOWER EXTREMITY PSEUDOANEURYSM (04/11/2024 4:24 PM CDT) Anatomical Region Laterality Modality Ultrasound 04/11/2024 5:10 PM CDT Narrative 04/11/2024 5:10 PM CDT For Patients: ??As a result of the Cures Act, medical imaging exams and procedure reports are released immediately into your electronic medical record. ??You may view this report before your referring provider. ??If you have questions, please contact your health care provider. Indication: please assess right groin for pseudoaneurysm or hematoma, had RFA and RFV sheaths Technique: Multiple transverse and longitudinal sonographic grayscale images of the right groin were obtained, supplemented with color , power, and spectral Doppler imaging. Comparison: None. Findings: No pseudoaneurysm, arteriovenous fistula, or hematoma was seen. Patent right iliac, common femoral and superficial femoral arteries. Patent right iliac, common femoral and femoral veins. Impression: No pseudoaneurysm, arteriovenous fistula, or hematoma was seen. Dictated by John Morillo MD @ 04/11/2024 5:10:05 PM (Electronically Signed) Procedure Note Wayne Morillo MD - 04/11/2024 For Patients: As a result of the Cures Act, medical imagingexams and procedure reports are released immediately into your electronicmedical record. You may view this report before your referring provider.If you have questions, please contact your health care provider. Indication: please assess right groin for pseudoaneurysm or hematoma, had RFA and RFVsheaths Technique: Multiple transverse and longitudinal sonographic grayscale images of theright groin were obtained, supplemented with color , power, and spectralDoppler imaging. Comparison: None. Findings: No pseudoaneurysm, arteriovenous fistula, or hematoma was seen. Patent right iliac, common femoral and superficial femoral arteries. Patent right iliac, common femoral and femoral veins. Impression: No pseudoaneurysm, arteriovenous fistula, or hematoma was seen. Dictated by John Morillo MD @ 04/11/2024 5:10:05 PM (Electronically Signed) Elias Arita MD US * EP Procedure to be Performed (04/11/2024 1:36 PM CDT) Narrative Elias Arita MD - 04/11/2024 1:36 PM CDT Elias Arita MD ? 04/11/2024 ??1:36 PM Cardiac Electrophysiology Immediate Post Procedure Note Preoperative Diagnosis: ??PVCs, Ventricular tachycardia Procedure: ??EP study with RVOT PVC ablation Findings/Conclusions: ??Same as above, rare PVCs of at least 2 other morphologies not targeted Postoperative Diagnosis: ??Same as preoperative diagnosis Complications: ??NA Personally monitored patient with conscious sedation during procedure: No Estimated Blood Loss: ??minimal Specimen: ??N/A Plan: 1) Sheath pull now (patient had 8F, 7F RFV and 5F RFA) 2) Apixaban 5 mg po bid to start tomorrow morning if groin site is stable 3) Bed rest X 3 hours 4) Anticipate discharge in the morning. 5) Other medication changes: none 6) Follow-up with Dr. Arita in clinic in 2 months or sooner as necessary. Surgeon: Elias Arita MD Elias Arita MD FURNACE CARETAKER ORD * SCAN-CARDIAC STRIP (04/11/2024 1:23 PM CDT) Scanner OTHER * SCAN-CARDIAC STRIP (04/11/2024 12:18 PM CDT) Scanner OTHER * EP STUDY /ABLATION (04/11/2024 8:53 AM CDT) Anatomical Region Laterality Modality X-Ray Angiograph y, X-Ray Angiography 04/11/2024 8:53 AM CDT Narrative Transcriptions Elias Arita MD - 04/14/2024 6:32 AM CDT [facility] Electrophysiology Procedure Report Name: BREANNA BOYLE Event Date: 04/11/2024 Excellian ID #: [id number] Date: 1980 Gender: Male Age: 44 MY #: [id number] Procedure Performed By: ELIAS ARITA [facility] Primary Scales Inspector: ELIAS ARITA Referring Physician: Summary / Conclusions VASCULAR ACCESS * Using ultrasound guidance and a percutaneous technique, the right commonfemoral artery was accessed. Ultrasound was used to confirm vesselpatency, localizing needle into the lumen of the vessel. For safetypurposes, a picture was saved for the medical recor * Using ultrasound guidance and a percutaneous technique, the rightfemoral vein was accessed. Ultrasound was used to confirm vessel patency,localizing needle into the lumen of the vessel. For safety purposes, apicture was saved for the medical record. ARRHYTHMIA * RVOT PVC's successfully ablated. POST ABLATION * Patient observed for at least 30 minutes post ablation, prior tocatheter removal. * Post ablation testing with isoproterenol infusion revealed normal basicintervals. ARTERIAL LINE * An arterial line was placed during the procedure Recommendations / Plan 1) Sheath pull now (patient had 8F, 7F RFV and 5F RFA) 2) Apixaban 5 mg po bid to start tomorrow morning if groin site isstable 3) Bed rest X 3 hours 4) Anticipate discharge in the morning. 5) Other medication changes: none 6) Follow-up with Dr. Arita in clinic in 2 months or sooner as necessary. Pre-Operative Diagnosis ? PVC, Symptomatic ? Ventricular tachycardia Post-Operative Diagnosis ? Same as Pre-operative diagnosis Indications ? Same as Pre-operative diagnosis Brief Patient History In summary, Mr. Boyle is a 44-year-old gentleman with past medical historyof HTN, coronary artery disease status post PCI, type 2 diabetes, obesity,hypertension, obstructive sleep apnea, atrial tachycardia s/p ablation andsymptomatic PVCs and VT who is s/p DDD ICD implant on 02/12/24 with . He has had ongoing PVCs and VT despite sotalol 120 mg po bid andpresents for a PVC/VT ablation. Consent & Lisle Protocol Lisle protocol was followed. TIME OUT conducted just prior tostarting procedure confirmed patient identity, site/side, procedure,patient position, and availability of correct equipment and implants (ifapplicable). The risks, benefits, and alternatives of the procedure were discussed withthe patient and written informed consent was obtained. Procedure Description After confirmation of informed consent, the patient was brought to theprocedure room in sinus rhythm with intermittent PVCs and couplets as wellas triplets (presumed to be the same focus as prior VT, LBBB with no rwave in V1, + in II, III, aV, - in aVL, aVR). The procedure was performedunder deep sedation with the assistance of the anesthesia team. Thepatient was prepped and draped in the usual sterile fashion. After a time out, 2 venous sheaths were placed in the RFV under ultrasoundguidance using local anesthesia and the modified seldinger technique (8F,7F), a 5F sheath was placed in the RFA (the RFA sheath was placed withsome difficulty due to extensive scarring above the artery likely fromprior access). An F/D decapolar catheter was placed in the CS and an F/Dirrigated contact force ablation catheter was advanced to the his regionto create a his map. A complete EP study was performed: the HV intervalwas normal, concentric VA conduction was present and there was no evidenceof dual AV-jose physiology with single atrial extrastimuli. We thenadvanced the ablation catheter to the RVOT area and mapped the PVC to theantero-septal RVOT and the final spot for ablation was 20 ms pre-QRS witha very sharp, negative unipolar signal. Sequential ablations weredelivered in the earliest area which resulted in cessation of the PVC. Idelivered two additional ablation lesions in the same area. No PVCs wereseen after the 4th ablation lesion and after waiting for 30 minutes bothon and off isoproternol at 2 mcg/minute. The catheters were removed fromthe body. The patient will be taken to the recovery area for sheaths to bepulled and hemostasis achieved by manual compression. The patienttolerated the procedure well and there were no immediate complications. Electrophysiology Study Data Basic Intervals Study State Underlying Rhythm Cycle Length [place] PA AH HV QRS [place] QRSMorphology Baseline NSR 791 155 73 43 Post Ablation NSR 600 138 Antegrade 1:1 AV Node Function Study State Pacing Site AV Node SCL 1:1 AH HV Dual AVN Physiology? AVNFast 1:1 AVN Slow 1:1 Wenkebach Cycle Length Baseline CS 270 280 Refractory Periods Study State Pacing Site Paced Cycle Length Paced Cycle ERP AVN ERP DualNode Physiology? AVN ERP (fast) AVN ERP (slow) Baseline CS 600 280 Retrograde 1:1 AV Node Function Study State Pacing Site AV Node SCL 1:1 Dual AVN Physiology? AVN Fast 1:1 AVN Slow 1:1 Wenkebach Cycle Length No VA Conduction? Midline Activation? Baseline RVA <300 Study Events 300 Electrophysiology Procedure Results SINUS NODE * The sinus node conduction is normal. AV NODE * The AV node conduction is normal. HIS/PURKINJE SYSTEM * The His/Purkinje system conduction is normal. Ablation Data PVCs Energy Source Ablation Catheter Used Rhythm During Ablation # of AttemptsMax Resendiz Max Temp. Result RF EZ Steer ThermoCool, 3.5mm NSR 6 40 23 Success PVC's originating in the right ventricular outflow tract were mapped andablated. Comments: total ablation time: 323 seconds Catheter Use Catheter Type Catheter Description Insertion Site Intracardiac Site SheathSize Sheath Type Sheath Description Ablation EZ STEER Thermocool MONICA, Bidir., 3.5mm tip, Thermocouple, D-Fcurves Right Femoral Vein Map/Abl 8 Fr Standard Sidearm Diagnostic/Map DecaNav F-Curve Decapolar 2-8-2 spacing Right Femoral VeinCS 7 Fr Standard Sidearm Complications ? No complications Procedure(s) Performed ? VT/Ventricular Ectopy Ablation ? Site-Rite Ultrasound used for vascular access ? Arterial Line ? 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 Total Flouro Dose: 5 mGy Mean Arterial Pressure: 92 mmHg Staff Name Role Chuy Márquez EPT Darianaub Elijah Pantoja EPT Manager Account Management Shahnaz Corey EPT Manager Account Management Julio C Yee CRNA, Joellyn C Implanting Teo Ingram RN Nurse Ari Templeton CVT Monitor Medications Ordered and Administered Start Time Stop Time Medication Dose Units Route Ordered By Given By 08:54 0.25% Bupivicaine 15 mL Subcut MD Elias Damon MD 09:29 Heparin 5000 Units IV MD Teo Damon, RN 09:59 (New Bag) Isoproterenol (Isuprel) 2 mcg per min IV MD Teo Reynoso, RN The anesthesia service monitored the patient?s conscious sedation duringthe procedure. The medications listed above were verbally ordered by me and read back tome as documented above. Refer to the hemodynamic procedure log report for additional casedetails. electronically signed on 04/14/2024 6:32:02 AM with status of Final Elias Arita MD Scales Inspector [facility] [address] [place] [address] (p) [phone](f) Elias Arita MD CV IMAGING * (ABNORMAL) Lipid Panel (12/23/2023 7:47 AM TOOL AND DIE MAKER APPRENTICE) CHOLESTEROL,TOTAL 93(L) 100 - 199 mg/dL 12/23/2023 9:38 AM [facility] Comment: Cholesterol, Total Reference Ranges Desirable <200 mg/dL Borderline 200-239 mg/dL High >=240 mg/dL TRIGLYCERIDES 229(H) <150 mg/dL 12/23/2023 9:38 AM TOOL AND DIE MAKER APPRENTICE [facility] HDL CHOLESTEROL 26(L) >40 mg/dL 9:38 AM TOOL AND DIE MAKER APPRENTICE [facility] NON-HDL CHOLESTEROL 67 <145 mg/dl 12/23/2023 9:38 AM TOOL AND DIE MAKER APPRENTICE [facility] CHOL/HDL RATIO 3.58 <4.50 12/23/2023 9:38 AM TOOL AND DIE MAKER APPRENTICE [facility] LDL CHOLESTEROL 21 <=130 mg/dL 12/23/2023 9:38 AM TOOL AND DIE MAKER APPRENTICE [facility] VLDL CHOLESTEROL 46(H) <=30 mg/dL 12/23/2023 9:38 AM [facility] Blood BLOOD SPECIMEN / Unknown Non-Lab Venipuncture / Unknown 12/23/2023 7:47 AM TOOL AND DIE MAKER APPRENTICE 12/23/2023 8:59 AM TOOL AND DIE MAKER APPRENTICE Kasia Thomson NP CHEMISTRY [facility] [address] [address], * RAPID HIV SCREEN (05/14/2010 2:30 PM CDT) RAPID HIV SCREEN Non-react bony (Nonreact bony) [facility] Blood specimen (specimen) BLOOD SPECIMEN / Unknown 05/14/2010 2:30 PM CDT 05/14/2010 1:32 PM CDT Alphonso Hardin MD CHEMISTRY Performing Organization Address City/[facility]/ZIP Co de Phone Number [facility] INTERNAL ZIP [phone] [address] from Last 3 Months or Most Recently Relevant to Health Maintenance Advance Directives * Full Code (Latest Code Status on File) Date Activated Date Inactivated Comments 06/23/2024 10:45 AM 06/23/2024 5:05 PM Question Answer Comments Code Status Discussion: Reviewed Preferences * Full Code Date Activated Date Inactivated Comments 04/11/2024 10:37 AM 04/12/2024 4:25 PM Question Answer Comments Code Status Discussion: Reviewed Preferences * Full Code Date Activated Date Inactivated Comments 02/11/2024 7:24 PM 02/13/2024 1:06 PM Question Answer Comments Code Status Discussion: Reviewed Preferences * Full Code Date Activated Date Inactivated Comments 02/09/2024 10:47 PM 02/10/2024 2:29 PM Question Answer Comments Code Status Discussion: Other * Full Code Date Activated Date Inactivated Comments 12/24/2023 12:05 PM 12/24/2023 3:56 PM Question Answer Comments Code Status Discussion: Reviewed Preferences Care Teams Sales Service Route Manager Relationship Specialty Start Date End Date Nathaniel Gamino MD [address] [place] [id number] PCP - General Internal Medicine 02/10/24
--- OUTSIDE RECORDS SUMMARY | 2024-07-07 08:28 | XMS_ITS ---
Author Organization [facility] Address [address] [place] [address] Care Team Providers Care Alpine Patroller Name Role Phone Unavailable Unavailable Unavailable Surgery Details Not on file Complications Check Surgery Details section. Procedure Estimated Blood Loss Check Surgery Details section. Procedure Findings Check Surgery Details section. Procedure Specimens Taken Check Surgery Details section.
== END 2024-07-04 08:21 | disposition home or self-care (01) ==
LOC: NFLDREF 07-07 08:26
PROVIDERS: PCP Internal Medicine; Referring Provider Internal Medicine; Visit Provider Internal Medicine
DX: E11.65 Type 2 diabetes mellitus with hyperglycemia (principal); I10 Essential (primary) hypertension; Z13.220 Encounter for screening for lipoid disorders
CPT/HCPCS: 80053; 80061; 82043; 82570

== ENCOUNTER 2024-08-18 07:55 | Outpatient (CLI) | payer OTHER, SELFPAY ==
--- OUTSIDE RECORDS SUMMARY | 2024-08-18 07:58 | XMS_ITS | Clinical Summary ---
Author Organization [facility] Address [place], [place] [address] Care Team Providers Care Caretaker Name Role Phone Nathaniel Gamino MD Primary Care Provider Allergies Active Allergy Reactions Criticality Noted Date Comments Chlorhexidine Itching 12/24/2023 Medications Medication Sig Dispensed Refills Start Date End Date Status EPINEPHrine (EPIPEN) 0.3 mg/0.3 mL injectionIndications :Anaphylactic reaction, initial encounter Inject 0.3 mg intramuscular one time if needed for Allergic Reaction for up to 1 dose. 2 Each 7 Active dextroamphetamine-am phetamine (ADDERALL XR) 30 mg Extended-Release capsule Take 30 mg by mouth every morning Active dextroamphetamine-am phetamine (ADDERALL XR) 10 mg Extended-Release capsule Take 10 mg by mouth once daily in the afternoon Take at 1 pm Active triamcinolone, 55 mcg each actuation, nasal (NASACORT) 55 mcg nasal spray Inhale 1 [place] to both nostrils once daily if needed for Rhinitis. Active Clobetasol Propionate 0.05 % lotion Apply topically to affected area(s) once daily if needed for Other (Specify) (eczema). Active amLODIPine (NORVASC) 5 mg tabletIndications:Es sential hypertension Take 2 Tablets (10 mg) by mouth once daily. 90 Tablet 3 3 Active zolpidem (AMBIEN) 10 mg tabletIndications:Es sential hypertension Take 1 Tablet (10 mg) by mouth at bedtime. 3 Active atorvastatin (LIPITOR) 40 mg tabletIndications:NS ELLIE (non-ST elevated myocardial infarction) (HC) Take 1 Tablet (40 mg) by mouth at bedtime. 90 Tablet 3 3 Active isosorbide mononitrate (IMDUR) 60 mg extended release tablet 24 hourIndications:Unst able angina (HC) Take 1 Tablet (60 mg) by mouth once daily. 90 Tablet 3 3 Active nitroglycerin (NITROSTAT) 0.4 mg sublingual tabletIndications:NS ELLIE (non-ST elevated myocardial infarction) (HC) Place 1 Tablet (0.4 mg) under the tongue every 5 minutes if needed for Chest Pain. 25 Tablet 3 3 Active oxymetazoline (Afrin, oxymetazoline,) 0.05 % nasal spray Inhale 1 [place] into affected nostril(s) 2 times daily if needed for Nasal Congestion. Active losartan (COZAAR) 100 mg tabletIndications:Hy pertension Take 100 mg by mouth once daily. 4 Active albuterol HFA (PRO-AIR; VENTOLIN; PROVENTIL) 90 mcg/actuation inhaler Inhale 2 Puffs by mouth 4 times daily if needed. Active apixaban (ELIQUIS) 5 mg tabletIndications:pr event thromboembolism in chronic atrial fibrillation Take 1 Tablet (5 mg) by mouth two times daily. 60 Tablet 5 4 Active LORazepam (ATIVAN) 0.5 mg tabIndications:Anxie ty Take 1 Tablet (0.5 mg) by mouth one time for 1 dose. Take one hour prior to CT study. Do not drive while taking ativan. 1 Tablet 4 Active sotaloL (BETAPACE) 120 mg tabletIndications:VT (ventricular tachycardia) (HC),PVC's (premature ventricular contractions),SVT (supraventricular tachycardia) (HC) Take 1 Tablet (120 mg) by mouth every 12 hours. 180 Tablet 3 4 Active Lantus Solostar U-100 Insulin 100 unit/mL (3 mL) penIndications:Diabe murphy mellitus type 2, noninsulin dependent (HC) Inject 40 units subcutaneous before bedtime. Increase or decrease by 3 units every 3 days to achieve fasting glucose of 100-150. Up to 80 units daily. 45 mL 3 4 Active metFORMIN (GLUCOPHAGE) 1,000 mg tabletIndications:Di abetes mellitus type 2, noninsulin dependent (HC) Take 1 Tablet (1,000 mg) by mouth two times daily with meals. 180 Tablet 4 4 Active glipiZIDE extended-release (GLUCOTROL XL) 5 mg Extended-Release tabletIndications:Di abetes mellitus type 2, noninsulin dependent (HC) Take 1 Tablet (5 mg) by mouth once daily before a meal. 90 Tablet 4 4 Active dilTIAZem CD (CARDIZEM CD) 120 mg extended release 24 hr capsuleIndications:P aroxysmal atrial fibrillation (HC) Take 1 Capsule (120 mg) by mouth two times daily. 120 Capsule 3 4 Active dulaglutide (Trulicity) 0.75 mg/0.5 mL subcutaneous penIndications:Diabe murphy mellitus type 2, noninsulin dependent (HC) Inject 0.75 mg subcutaneous once weekly. Take in place of Ozempic due to insurance coverage. 4 Pen 11 4 Active clopidogreL (Plavix) 75 mg tabletIndications:VT (ventricular tachycardia) (HC),Contraindicatio n to percutaneous coronary intervention (PCI) Take 1 Tablet (75 mg) by mouth once daily. 90 Tablet 4 Active benzonatate (TESSALON) 100 mg capsuleIndications:C ough, unspecified type Take 1 Capsule (100 mg) by mouth 3 times daily if needed for Cough. 21 Capsule 4 Active nebulizer accessories kitIndications:Cough , unspecified type,Moderate asthma with exacerbation, unspecified whether persistent For home use. Length of need: 999 1 Kit 4 Active albuterol 0.083% (2.5 mg/3 mL) neb solutionIndications: Cough, unspecified type Inhale 3 mL (2.5 mg) via a nebulizer every 4 hours if needed for Wheezing or Cough. 180 mL 4 Active predniSONE (DELTASONE) 20 mg tabletIndications:Mo derate asthma with exacerbation, unspecified whether persistent Take 2 Tablets (40 mg) by mouth once daily for 5 days. 10 Tablet 4 08/04/20 24 doxycycline 100 mg tabletIndications:Si nusitis, unspecified chronicity, unspecified location Take 1 Tablet (100 mg) by mouth two times daily for 7 days. 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 Residual 50% ostial diagonal stenosis - NSTEMI s/p KYRA to distal RCA (10/2019) Dyslipidemia Overview (05/14/2010): -Low HDL, high TG NSTEMI (non-ST elevated myocardial infarction) Myocarditis Resolved Problems Problem Noted Date Diagnosed Date Resolved Date Insulin dependent type 2 diabetes mellitus 11/12/2019 11/12/2019 Uncontrolled type 2 diabetes mellitus without complication, without long-term current use of insulin 10/24/2019 11/12/2019 Elevated troponin 11/12/2019 Family history of premature CAD 11/12/2019 Encounters Date Type Department Care Team Description 08/03/2024 Orders Only [facility] [address] [place] [address] [place] [id number] Pamela Bynum NP 1 scan: (1-Ord) 07/30/2024 07/30/2024 10:30 AM CDT Ancillary Procedure [address] [phone] 07/30/2024 9:45 AM CDT Office Visit [facility] [address] [place] [phone] Pamela Bynum NP Person Under Investigation (PUI) (COVID-19 positive 07/25 symptoms started 07/24/cough, body aches fever /weak/ heart started acting up last night); Weak (fatigue) 07/30/2024 Travel 07/03/2024 2:00 PM CDT Patient Outreach [address] [phone] Telehealth (DM education) 07/02/2024 Travel 06/29/[address] [facility] [address] [facility] [address] [place] [address] Elias Arita MD Medication Management 06/26/2024 Telephone [facility] [address] [facility] [address] [place] [phone] Maurice Holliday MD Medication Management (Ozempic) 06/23/2024 8:27 AM CDT Anesthesia Event [facility] [address] [place] [id number] Gene Alejandre MD 06/23/2024 5:51 AM CDT - 06/23/2024 2:55 PM CDT Hospital Encounter [facility] [address] [place] [address] Elias Arita MD [place], Carter McAllen, MD Atrial fibrillation with rapid ventricular response (HC) (Primary Dx); Diabetes mellitus type 2, noninsulin dependent (HC); Paroxysmal atrial fibrillation (HC) Discharge Disposition: Home Self Care 06/23/2024 Travel 06/16/[address] [facility] [address] [phone] Elias Arita MD Questions 06/12/2024 Telephone [facility] [address] [address] Pearl Witt RN, CCRN EP Scheduling 06/05/2024 Telephone [facility] [address] [place] [address] Ariana Santos PA 05/31/2024 1:30 PM CDT Office Visit [address] [place] [address] Ariana Santos PA Follow Up (Follow up post ICD placement , /Device ck done today , ) 05/31/2024 Orders Only [address] [place] [address] Hank Mcrae 1 scan: (1-Ord) I WH: EKG final signed 05/31/24 05/30/2024 Travel 05/24/2024 6:33 AM CDT - 05/24/2024 11:59 PM CDT Hospital Encounter [facility] [address] [address] Yoav Garcia MD Left arm swelling 05/23/2024 4:40 PM CDT - 05/23/2024 8:02 PM CDT Emergency [facility] [address] [place] [address] Kun Cadena, Merrill Arreaga Palpitations (Primary Dx); PVC (premature ventricular contraction); SVT (supraventricular tachycardia) (HC); Chest pain, unspecified type; PVC's (premature ventricular contractions) Discharge Disposition: Home Self Care 05/23/2024 Travel 05/23/[address] [facility] [address] [place] [address] [address] [place] [address] Miranda Motta RN Device Check (Unscheduled remote, Patient sent for rapid heart rates this morning.) 05/23/[address] [facility] [address] [place] [address] Yoav Garcia MD Prior Authorization from Last 3 Months Immunizations Name Administration [...] Sign Reading Time Taken Comments Blood Pressure 143/88 07/30/2024 9:57 AM CDT Pulse 84 07/30/2024 11:00 AM CDT Temperature 36.2 ??C (97.1 ??F) 07/30/2024 9:57 AM CD T Respiratory Rate 18 07/30/2024 11:00 AM CDT Oxygen Saturation 98% 07/30/2024 11:00 AM CDT Inhaled Oxygen Concentration - - Weight 112 kg (247 lb) 07/30/2024 9:57 AM CDT Height 180.3 cm (5' 11) 06/23/2024 6:40 AM CDT Body Mass Index 34.45 06/23/2024 6:40 AM CDT Plan of Treatment Upcoming Encounters Date Type Department Care Team (Late st Contact Info) Description 08/30/2024 2:30 PM CDT Cardiac Device Check [facility] [address] [address] 09/27/[address] [facility] [phone] 09/27/2024 11:30 AM HAND ALTERATIONS SEAMSTRESS Office Visit [facility] [address] [place] [address] Ariana Santos PA [address] [facility] [address] [place] [address] Health Maintenance Due Date Last Done Comments Pneumococcal series for age 6-64 (1 of 2 - PCV) 01/25/1986 Tdap 01/25/1991 Hepatitis C screening for ag e 18-79 01/25/1998 Hepatitis B series for Diabe murphy (1 of 3 - 19+ 3-dose series) 01/25/1999 Tetanus booster 11/22/2002 11/22/1992 Depression screening for age 12+ 10/25/2020 10/25/20 19, 10/24/2019 COVID-19 vaccine series (3 - 2022- season) 2024 03/12/2021, 02/12/2021 Influenza for age 9-49 07/23/2024 BMI (ht and wt on same day) for age 18+ 05/31/2025 05/31/2024, 01/28/2024, 08/06/2023, Additional history exists Lipids for age 35-44 12/23/2028 12/23/2023, 07/26/2023, 08/08/2021, Additional history exists HIV for age 15-65 Completed 05/14/2010 Procedures Procedure Name Priority Date/Time Associated Diagnosis Comments XR CHEST 2 VIEWS PA AND LATERAL STAT 07/30/2024 10:25 AM CDT COVID-19 virus infection Cough, unspecified type SOB (shortness of breath) CBC WITH AUTO DIFFERENTIAL STAT 07/30/2024 10:22 AM CDT COVID-19 virus infection Cough, unspecified type SOB (shortness of breath) BASIC METABOLIC PANEL STAT 07/30/2024 10:22 AM CDT COVID-19 virus infection Cough, unspecified type SOB (shortness of breath) CBC WITH AUTO DIFFERENTIAL STAT 07/30/2024 10:22 AM CDT COVID-19 virus infection Cough, unspecified type SOB (shortness of breath) EKG 12 LEAD Routine 07/30/2024 12:00 AM CDT COVID-19 virus infection Cough, unspecified type SOB (shortness of breath) GLUCOSE METER Timed 06/23/2024 11:26 AM CDT [...] PM CDT SCAN-PACER 05/23/2024 12:00 AM CDT LIPID PANEL APPLE 12/23/2023 7:47 AM HAND ALTERATIONS SEAMSTRESS RAPID HIV SCREEN STAT 05/14/2010 2:30 PM CDT from Last 3 Months or Most Recently Relevant to Health Maintenance Results * XR CHEST 2 VIEWS PA AND LATERAL (07/30/2024 10:25 AM CDT) Anatomical Region Laterality Modality CHEST, THORAX, Lung, HEART Compu cristiana Radiography 07/30/2024 10:3 6 AM CDT Impressions 07/30/2024 10:36 AM CDT Negative chest. Dictated by Riana Swann MD @ 07/30/2024 10:36:20 AM (Electronically Signed) Narrative 07/30/2024 10:36 AM CDT For Patients: ??As a result of the Cures Act, medical imaging exams and procedure reports are released immediately into your electronic medical record. ??You may view this report before your referring provider. ??If you have questions, please contact your health care provider. INDICATION: COVID TECHNIQUE: Two view chest. FINDINGS: The lungs are clear. The heart, mediastinum and pulmonary vessels are of normal size. There is no evidence of pleural disease. Left cardiac pacer. Procedure Note Riana Swann MD - 07/30/2024 For Patients: As a result of the Cures Act, medical imagingexams and procedure reports are released immediately into your electronicmedical record. You may view this report before your referring provider.If you have questions, please contact your health care provider. INDICATION: COVID TECHNIQUE: Two view chest. FINDINGS: The lungs are clear. The heart, mediastinum and pulmonary vessels are ofnormal size. There is no evidence of pleural disease. Left cardiac pacer. IMPRESSION: Negative chest. Dictated by Riana Swann MD @ 07/30/2024 10:36:20 AM (Electronically Signed) Pamela E Fletcher SUPERVISOR [facility] * CBC WITH AUTO DIFFERENTIAL (07/30/2024 10:22 AM [facility]) WHITE BLOOD COUNT 7.8 4.5 - 11.0 thou/cu mm 07/30/2024 10:28 AM [facility] RED BLOOD COUNT 5.72 4.30 - 5.90 mil/cu mm 07/30/2024 10:28 AM [facility] HEMOGLOBIN 16.7 13.5 - 17.5 g/dL 07/30/2024 10:28 AM [facility] HEMATOCRIT 47.8 37.0 - 53.0 % 07/30/2024 10:28 AM [facility] MCV 84 80 - 100 fL 07/30/2024 10:28 AM [facility] MCH 29.2 26.0 - 34.0 pg 07/30/2024 10:28 AM [facility] MCHC 34.9 32.0 - 36.0 g/dL 07/30/2024 10:28 AM [facility] RDW 12.3 11.5 - 15.5 % 07/30/2024 10:28 AM [facility] PLATELET COUNT 239 140 - 440 thou/cu mm 07/30/2024 10:28 AM [facility] MPV 9.9 6.5 - 11.0 fL 07/30/2024 10:28 AM [facility] % NEUT 54.3 % 07/30/2024 10:28 AM [facility] % LYMPH 36.7 % 07/30/2024 10:28 AM [facility] % MONO 6.3 % 07/30/2024 10:28 AM [facility] % EOS 2.6 % 07/30/2024 10:28 AM [facility] % BASO 0.1 % 07/30/2024 10:28 AM [facility] ABSOLUTE NEUTROPHILS 4.2 1.7 - 7.0 thou/cu mm 07/30/2024 10:28 AM [facility] ABSOLUTE LYMPHOCYTES 2.9 0.9 - 2.9 thou/cu mm 07/30/2024 10:28 AM [facility] ABSOLUTE MONOCYTES 0.5 <0.9 thou/cu mm 07/30/2024 10:28 AM [facility] ABSOLUTE EOSINOPHILS 0.2 <0.5 thou/cu mm 07/30/2024 10:28 AM [facility] ABSOLUTE BASOPHILS 0.0 <0.3 thou/cu mm 07/30/2024 10:28 AM [facility] Blood BLOOD SPECIMEN / Unknown Venipuncture / Unknown 07/30/2024 10:22 AM CDT 07/30/2024 10:22 AM CDT Pamela Bynum SUPERVISOR [employer] HEMATOLOGY [facility] [address] [place] [address] * (ABNORMAL) BASIC METABOLIC PANEL (07/30/2024 10:22 AM T) Only the most recent of3 resultswithin the time period is included. SODIUM 134(L) 136 - 145 mmol/L 07/30/2024 10:43 AM [facility] POTASSIUM 4.7 3.5 - 5.1 mmol/L 07/30/2024 10:43 AM [facility] CHLORIDE 98 98 - 107 mmol/L 07/30/2024 10:43 AM [facility] CO2,TOTAL 26 22 - 29 mmol/L 07/30/2024 10:43 AM [facility] ANION GAP 10 5 - 18 07/30/2024 10:43 AM [facility] GLUCOSE 329(H) 70 - 99 mg/dL 07/30/2024 10:43 AM [facility] CALCIUM 9.6 8.6 - 10.0 mg/dL 07/30/2024 10:43 AM CDT [facility] BUN 17 6 - 20 mg/dL 07/30/2024 10:43 AM CDT [facility] CREATININE 1.11 0.70 - 1.20 mg/dL 07/30/2024 10:43 AM CDT [facility] BUN/CREAT RATIO 15 10 - 20 10:43 AM CDT [facility] eGFR 84(L) >90 mL/min/1.7 3m2 07/30/2024 10:43 AM CDT [facility] Comment:As of 2022, eG FR is calculated by the CKD-EPI creatinine equation without race adjustment. ??eGFR can be influenced by muscle mass, exercise, and diet. ??The reported eGFR is an estimation only and is only applicable if the renal function is stable. Blood BLOOD SPECIMEN / Unknown Venipuncture / Unknown 07/30/2024 10:22 AM CDT 07/30/2024 10:22 AM CDT Pamela Bynum NP CHEMISTRY [facility] [address] [place] [address] * EKG 12 LEAD (07/30/2024 12:00 AM CDT) Only the most recent of4 resultswithin the time period is included. Pamela Bynum SUPERVISOR GRAPHITE EKG ORD * (ABNORMAL) GLUCOSE METER (06/23/2024 11:26 AM CDT) Only the most recent of3 resultswithin the time period is included. GLUCOSE METER 259(H) 65 - 100 mg/dL 06/23/2024 11:31 AM CDT [facility] Blood BLOOD SPECIMEN / Unknown 06/23/2024 11:26 AM CDT 06/23/2024 11:31 AM CDT Elias Arita MD CHEMISTRY [facility] [address] [place] [address], [place] * EP Procedure to be Performed (06/23/2024 [...] Surgeon: Elias Arita MD Elias Arita MD INTELLIGENCE AGENT ORD * (ABNORMAL) ACTIVATED CLOTTING TIME [id number] ACT (06/23/2024 10:31 AM CDT) ACTIVATED CLOTTING TIME, POCT 316(H) 74 - 125 sec 06/23/2024 3:24 PM CDT [facility] Blood BLOOD SPECIMEN / Unknown 06/23/2024 10:31 AM CDT 06/23/2024 3:24 PM CDT Elias Arita MD HEMATOLOGY Performing Organization Address City/[facility]/ZIP Co de Phone Number [facility] [address] [place] [id number], [place] * EP STUDY /ABLATION (06/23/2024 9:00 AM CDT) Anatomical Region Laterality Modality X-Ray Angiograph y, X-Ray Angiography 06/23/2024 9:00 AM CDT Narrative Transcriptions Elias Arita MD - 06/23/2024 4:28 PM CDT [facility] Electrophysiology Procedure Report Name: BREANNA BOYLE Event Date: 06/23/2024 [facility] ID #: [id number] Date: 1980 Gender: Male Age: 44 [facility] #: [id number] Procedure Performed By: ELIAS ARITA [facility] Primary Diploma Medical Assistant: ELIAS ARITA Referring Physician: Summary / Conclusions [...] Other medication changes: discontinue metoprolol and start [id number] mg XL bid 6) Follow-up in EP [...] with PVC +/- SVT ablation. Consent & [place] Protocol [place] protocol was followed. TIME OUT conducted just [...] Intervals Study State Underlying Rhythm Cycle Length [place] PA AH HV QRS [place] QRSMorphology Baseline NSR 624 133 88 40 [...] See Anesthesia Note Total Flouro Time: 2 RED HAT OPEN STACK ADMINISTRATOR Total Flouro Dose: 3 mGy Staff Name Role Elias Arita Diploma Medical Assistant Miranda Ordonez CRNA, Logan EPT Monitor CoreyShahnaz cary EPT Scrub Darrin Zimmer EPT Engineering Program Manager Neha Abad RN Nurse Medications Ordered and Administered Start Time Stop Time Medication Dose Units Route Ordered By Given By 09:03 0.25% Bupivicaine 7 mL Subcut MD Elias Damon MD 09:12 Heparin 5000 Units IV MD Neha Damon, RN 10:02 (New Bag) Isoproterenol (Isuprel) 3 mcg per min IV MD Neha Reynoso, ALLISON 10:39 Protamine 30 Mg IV MD Neha Damon, RN The anesthesia service monitored the patient?s conscious sedation duringthe procedure. The medications listed above were verbally ordered by me and read back tome as documented above. Refer to the hemodynamic procedure log report for additional casedetails. electronically signed on 06/23/2024 4:28:34 PM with status of Final Elisa Arita MD Diploma Medical Assistant [facility] [address] [place] [address] [place] [address] (p) [phone](f) Elias Arita MD CV IMAGING * CBC with Platelet no Diff (06/23/2024 6:36 AM CDT) Only the most recent of2 resultswithin the time period is included. WHITE BLOOD COUNT 7.1 4.5 - 11.0 thou/cu mm 06/23/2024 6:52 AM CDT [facility] RED BLOOD COUNT 5.72 4.30 - 5.90 mil/cu mm 06/23/2024 6:52 AM CDT [facility] HEMOGLOBIN 16.3 13.5 - 17.5 g/dL 06/23/2024 6:52 AM CDT [facility] HEMATOCRIT 47.7 37.0 - 53.0 % 06/23/2024 6:52 AM CDT [facility] MCV 83 80 - 100 fL 06/23/2024 6:52 AM CDT [facility] MCH 28.5 26.0 - 34.0 pg 06/23/2024 6:52 AM CDT [facility] MCHC 34.2 32.0 - 36.0 g/dL 06/23/2024 6:52 AM CDT [facility] RDW 12.0 11.5 - 15.5 % 06/23/2024 6:52 AM CDT [facility] PLATELET COUNT 203 140 - 440 thou/cu mm 06/23/2024 6:52 AM CDT [facility] MPV 10.5 6.5 - 11.0 fL 06/23/2024 6:52 AM CDT [facility] NRBC 0.0 % 06/23/2024 6:52 AM CDT [facility] ABS NRBC 0.0 thou /cu mm 06/23/2024 6:52 AM CDT [facility] Blood BLOOD SPECIMEN / Unknown Non-Lab Venipuncture / Unknown 06/23/2024 6:36 AM CDT 06/23/2024 6:46 AM CDT Elias Arita MD HEMATOLOGY Performing Organization Address City/State/[facility] Co de Phone Number [facility] [address] [address], * CT ANGIO UPPER EXTREMITY LEFT (05/24/2024 [...] Radiologist MCA:tyler D&T: ??05/26/2024 Transcribed: ??12:02 p.m. [email or web address]/Dictated by: Wayne Marte MD @ 05/26/2024 11:00:00 [...] ultrasoundscan. Wayne Marte M.D. Interventional Radiologist MCA:tyler D& Transcribed: 12:02 p.m. [email or web address]/Dictated by: Wayne Marte MD @ 05/26/2024 11:00:00 [...] Radiologist [employer] [email or web address] / [email or web address]/Dictated by: Wayne Marte MD @ 05/26/2024 10:56:00 AM (Electronically Signed) Yoav Garcia MD CT * CREATININE,ISTAT (05/24/2024 6:48 AM CDT) CREATININE, POCT 0.90 0.57 - 1.11 mg/dL 05/24/2024 8:57 AM CDT [employer] eGFR >90 >90 mL/min/1.7 3m2 05/24/2024 8:57 AM CDT [facility] Comment:As of 2022, eG FR is calculated by the CKD-EPI creatinine equation without race adjustment. eGFR can be influenced by muscle mass, exercise, and diet. The reported eGFR is an estimation only and is only applicable if the renal function is stable. Blood BLOOD SPECIMEN / Unknown 05/24/2024 6:48 AM CDT 05/24/2024 8:57 AM CDT Yoav Garcia MD CLINICAL REVIEWER [facility] [address] [place] [id number], * (ABNORMAL) TROPONIN T (HS) ONE TIME (05/23/2024 7:08 PM CDT) TROPONIN T HS 36(H) 6-15 ng/L ng/L 05/23/2024 7:35 PM CDT [facility] Blood BLOOD SPECIMEN / Unknown Butterfly / Unknown 05/23/2024 7:08 PM CDT 05/23/2024 7:11 PM CDT Kun Cadena DO CHEMISTRY [facility] [address] [place] [address] [id number] * (ABNORMAL) TROPONIN T (HS) ACUTE W/2HR REFLEX (05/23/2024 5:08 PM CDT) TROPONIN T HS 39(H) 6-15 ng/L ng/L 05/23/2024 5:43 PM CDT [facility] Blood BLOOD SPECIMEN / Unknown IV Start / Unknown 05/23/2024 5:08 PM CDT 05/23/2024 5:12 PM CDT Narrative [facility] - 05/23/2024 5:43 PM CDT [id number] [...] Kun Cadena DO CHEMISTRY Performing Organization Address City/[facility] Co de Phone Number [facility] [address] [place] [address] * MAGNESIUM (05/23/2024 5:08 PM CDT) MAGNESIUM 1.8 1.6 - 2.6 mg/dL 05/23/2024 5:43 PM CDT [facility] Blood BLOOD SPECIMEN / Unknown IV Start / Unknown 05/23/2024 5:08 PM CDT 05/23/2024 5:12 PM CDT Kun Cadena DO CHEMISTRY Performing Organization Address [facility]/ZIP Co de Phone Number [facility] [address] [place] [address] * SCAN-PACER (05/23/2024 12:00 AM CDT) Narrative 05/23/2024 12:00 AM CDT Ordered by an unspecified provider. Other Clinical Staff OTHER * (ABNORMAL) Lipid Panel (12/23/2023 7:47 AM [employer]TER[employer] SEAMSTRESS) CHOLESTEROL,TOTAL 93(L) 100 - 199 mg/dL 12/23/2023 9:38 AM [facility] Comment: Cholesterol, Total Reference Ranges Desirable <200 mg/dL Borderline 200-239 mg/dL High >=240 mg/dL TRIGLYCERIDES 229(H) <150 mg/dL 12/23/2023 9:38 AM [employer] SEAMSTRESS [facility] HDL CHOLESTEROL 26(L) >40 mg/dL 9:38 AM [employer]ATIONS SEAMSTRESS [facility] NON-HDL CHOLESTEROL 67 <145 mg/dl 12/23/2023 9:38 AM [employer]TERATIONS SEAMSTRESS [facility] CHOL/HDL RATIO 3.58 <4.50 12/23/2023 9:38 AM [employer]TERATIONS SEAMSTR[facility] LDL CHOLESTEROL 21 <=130 mg/dL 12/23/2023 9:38 AM [employer]TERATIONS SEAMSTRESS [facility] VLDL CHOLESTEROL 46(H) <=30 mg/dL 12/23/2023 9:38 AM [employer] ALTERATIONS SEAMSTRESS [facility] Blood BLOOD SPECIMEN / Unknown Non-Lab Venipuncture / Unknown 12/23/2023 7:47 AM [facility] ALTERATIONS SEAMSTRESS 12/23/2023 8:59 AM [facility] SE[facility]ESS Kasia Thomson NP CHEMISTRY [facility] [address] [place] [address], * RAPID HIV SCREEN (05/14/2010 2:30 PM CDT) RAPID HIV SCREEN Non-react bony (Nonreact bony) [facility] Blood specimen (specimen) BLOOD SPECIMEN / Unknown 05/14/2010 2:30 PM CDT 05/14/2010 1:32 PM CDT Alphonso Hardin MD CHEMISTRY [facility] [place]NAL ZIP [id number] [address] from Last 3 Months or Most Recently [...] Code Status Discussion: Reviewed Preferences Care Teams Caretaker Relationship Specialty Start Date End Date Nathaniel Gamino MD [address] [place] [address] PCP - General Internal Medicine 02/10/24
--- OUTSIDE RECORDS SUMMARY | 2024-08-18 07:58 | XMS_ITS ---
Author Organization [facility] Address [address] [place] [address] Care Team Providers Care Railroad Accountant Name Role Phone Unavailable Unavailable Unavailable Surgery Details Not on file Complications Check Surgery Details section. Procedure Estimated Blood Loss Check Surgery Details section. Procedure Findings Check Surgery Details section. Procedure Specimens Taken Check Surgery Details section.
--- OUTSIDE RECORDS SUMMARY | 2024-08-18 07:58 | XMS_ITS | Clinical Summary ---
Author Organization [facility] Address [address] [place] [address] Care Team Providers Care Meal Grinder Tender Name Role Phone Unavailable Primary Care Provider Unavailabl e Source Comments Patient records contain information from all sites at [facility]. For routine questions regarding patient records, call [phone] during business hours, M-F 8:00 AM - 5:00 PM Central Time. 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 I have a [facility] place to live 07/08/2023 Sex and [...] 3-dose series) 01/25/1999 Hemoglobin A1C 04/25/2020 10/25/2019 Depression Screening (Annual PHQ-2) 11/22/2023 COVID-19 Vaccine (2023- season) 2024 03/12/2021, 02/12/2021 Creatinine Level (Kidney Function Test) 07/27/2024 07/27/2023, [...] age to complete this topic [place] [phone]
--- OUTSIDE RECORDS SUMMARY | 2024-08-18 07:58 | XMS_ITS | Referral Summary ---
Author Organization [facility] Address [address] [place] [address] Care Team Providers Care Market Development Executive Name Role Phone Unavailable Primary Care Provider Unavailabl e Source Comments Patient records contain information from all sites at [facility]. For routine questions regarding patient records, call [phone] during business hours, M-F 8:00 AM - 5:00 PM Central Time. Record requests for emergency care only can be directed to [phone] at any time.[facility] Allergies No known active allergies [...] high TG Atherosclerotic Heart Diseas e Of [place] Coronary Artery Without Angina Pectoris 07/08/2023 Overview [...] your living situation today? I have a [facility] place to live 07/08/2023 Sex and Gender Information Value Date Recorded Sex Assigned at Male 07/08/2023 1:48 PM CDT Gender Identity Male 07/08/2023 1:48 PM CDT Sexual Orientation Straight 07/08/2023 1: 48 PM CDT Plan of Treatment Not on file [address] [facility] [place] [phone]
--- NOTE | 2024-08-18 08:00 | CRLHL7_ITS ---
For Patients: As a result of the Century Cures Act, medical imaging exams and procedure reports are released immediately into your electronic medical record. You may view this report before your referring provider. If you have questions, please contact your health care provider. Indication: NASAL CONGESTION; EAR PAIN Technique: CT of the paranasal sinuses without contrast. Coronal and sagittal reformatted images. Bone and soft tissue algorithms. Comparison: CT 02/27/2022. Findings: Frontal sinuses: The frontal sinuses and frontal recesses are clear. Ethmoid air cells: The ethmoid air cells are clear. Symmetric depths of the olfactory fossa. The anterior ethmoidal arteries are well-covered by bone. Sphenoid sinuses: The sphenoid sinuses and ostia are clear. No optic canal or carotid canal dehiscence. Maxillary sinuses: Mild polypoid mucosal thickening in the maxillary sinuses. There is a 1.2 cm polyp versus retention cyst in the right maxillary sinus that contributes to obstruction of the right infundibulum. Stable minimal mucosal thickening in the left maxillary sinus. The osteomeatal units are clear. Nasal cavity: Leftward deviation of the nasal septum.. No vi bullosa. No paradoxical turbinates. Skullbase, maxilla, TMJ: No lytic or blastic osseous lesions. No periapical tooth lucencies. Mastoid air cells are clear. Orbital contents: Unremarkable. Imaged intracranial contents: Carotid siphon atherosclerotic calcifications. Imaged soft tissues structures: Unremarkable. IMPRESSION: 1. Mild polypoid mucosal thickening in the maxillary sinuses. New obstruction of the right infundibulum due to mucosal thickening and a polyp versus retention cyst. The left infundibulum is clear. 2. Stable minimal mucosal thickening in the left maxillary sinus. 3. Leftward deviation of the nasal septum. Please note that all CT scans at this facility use dose modulation, iterative reconstruction, and/or weight-based dosing when appropriate to reduce radiation dose to as low as reasonably achievable. Dictated by Toe Cason MD @ 08/18/2024 10:27:13 PM (Electronically Signed)
== END 2024-08-18 07:56 | disposition home or self-care (01) ==
LOC: CT 07:56
PROVIDERS: PCP Internal Medicine; Visit Provider Otolaryngology
DX: J32.9 Chronic sinusitis, unspecified (principal); J32.0 Chronic maxillary sinusitis; J34.2 Deviated nasal septum
CPT/HCPCS: 70486

== ENCOUNTER 2025-04-24 09:44 | Outpatient (CLI) | payer OTHER, SELFPAY ==
--- NOTE | 2025-04-24 10:00 | CRLHL7_ITS ---
For Patients: As a result of the Century Cures Act, medical imaging exams and procedure reports are released immediately into your electronic medical record. You may view this report before your referring provider. If you have questions, please contact your health care provider. INDICATION: Bilateral leg edema. COMPARISON: None. TECHNIQUE: A compression venous ultrasound exam was performed of both lower extremities using centeno scale imaging, color Doppler, and spectral Doppler analysis. FINDINGS: Right: Sonographic imaging of the right lower extremity demonstrates normal compressibility and color Doppler venous blood flow within the common femoral, femoral, deep femoral, and proximal greater saphenous veins. At a lower level the popliteal, peroneal, and posterior tibial veins also show normal compressibility and color Doppler venous blood flow. Left: Sonographic imaging of the left lower extremity demonstrates normal compressibility and color Doppler venous blood flow within the common femoral, femoral, deep femoral, and proximal greater saphenous veins. At a lower level the popliteal, peroneal, and posterior tibial veins also show normal compressibility and color Doppler venous blood flow. IMPRESSION: Both lower extremities are negative for acute DVT. Dictated by Linda Norton MD @ 04/24/2025 9:28:34 PM (Electronically Signed)
== END 2025-04-24 09:45 | disposition home or self-care (01) ==
LOC: US 09:44
PROVIDERS: PCP Internal Medicine; Visit Provider Internal Medicine Cardiovascular Disease
DX: R60.0 Localized edema (principal); I48.0 Paroxysmal atrial fibrillation
CPT/HCPCS: 93970

== ENCOUNTER 2025-04-27 07:56 | Outpatient (CLI) | payer OTHER, SELFPAY ==
[2025-04-27 08:29] LABS: Chloride* 99 mmol/L (96-114); Potassium* 4.1 mmol/L (3.6-5.1); Sodium* 136 mmol/L (135-149)
[2025-04-27 08:32] LABS: Anion Gap 9 mEq/L (7-15); Blood Urea Nitrogen* 19 mg/dL (5-24); Calcium* 9.6 mg/dL (8.4-10.6); Carbon Dioxide* 28 mmol/L (20-32); Creatinine* 1.1 mg/dL (0.5-1.5); Estimated Glomerular Filt Rate 84 ml/min; Glucose* 158 mg/dL (60-115)
== END 2025-04-27 07:57 | disposition home or self-care (01) ==
PROVIDERS: PCP Internal Medicine; Visit Provider Internal Medicine Cardiovascular Disease
DX: I48.0 Paroxysmal atrial fibrillation (principal)
CPT/HCPCS: 36415; 80048

== ENCOUNTER 2025-10-24 08:17 | Outpatient (CLI) | payer OTHER, SELFPAY | END 2025-10-24 08:18 | disposition home or self-care (01) | LOC: NFLDREF 10-26 14:35 | PROVIDERS: PCP Internal Medicine; Referring Provider Internal Medicine; Visit Provider Internal Medicine | DX: E11.9 Type 2 diabetes mellitus without complications (principal); R21 Rash and other nonspecific skin eruption; E78.5 Hyperlipidemia, unspecified; I10 Essential (primary) hypertension | CPT/HCPCS: 80053; 80061; 82043; 82570 ==